=== PATIENT | female | born 1990 | race Caucasian/White ===

== ENCOUNTER → 2018-10-31 08:15 | Outpatient (CLI) | payer OTHER, SELFPAY ==
--- NOTE | 2018-10-31 08:20 | CT_ITS ---
STUDY: CT MAXILLOFACIAL SINUSES REASON FOR EXAM: Female, 28 years old. Headache. RADIATION DOSAGE (If Supplied By Facility): CTDIvol = ( 33.06 ) mGy, DLP = ( 784.26 ) mGycm TECHNIQUE: The patient was scanned in a multi detector CT scanner. High resolution axial imaging was performed without the administration of intravenous contrast material. Sagittal and coronal images were reconstructed. Individualized dose optimization techniques were used for this CT. COMPARISON: None. FINDINGS: FRONTAL SINUSES: Normal aeration, without mucosal inflammatory disease. ETHMOIDAL SINUSES: Normal aeration, without mucosal inflammatory disease. MAXILLARY SINUSES: Normal aeration, without mucosal inflammatory disease. SPHENOIDAL SINUSES: Normal aeration, without mucosal inflammatory disease. There is patency of the bilateral maxillary infundibuli with normal uncinate processes, ethmoid bullae, and hiatus semilunaris. Normal bilateral middle turbinates. Normal bilateral inferior turbinates. Normal midline nasal septum. There is patency of the bilateral nasal airways. The visualized osseous structures are normal. The visualized bilateral orbital contents are normal. CT/Sinus/Facial Bone IMPRESSION: Normal CT examination of the maxillofacial sinuses. Electronically Signed: Elbert Weinstein, at 9:47 EDT , Service support ,
== END ==
PROVIDERS: Family Provider Family Medicine; PCP Family Medicine; Referring Provider Family Medicine; Visit Provider Family Medicine
DX: G44.52 New daily persistent headache (NDPH) (principal)
CPT/HCPCS: 70486

== ENCOUNTER → 2021-01-21 06:29 | Outpatient (CLI) | payer OTHER, SELFPAY ==
--- NOTE | 2021-01-21 06:39 | MRI_ITS ---
STUDY: MRI RIGHT REARFOOT WITHOUT CONTRAST REASON FOR EXAM: Female, 30 years old. RT FOOT PLANTAR FASCIITIS TECHNIQUE: Standardized fat and water weighted pulse sequences were obtained in all 3 orthogonal planes. COMPARISON: None. FINDINGS: Calcaneal stress reaction without fracture line (sagittal image 12 series 4). Tiny plantar spur with minimal plantar fascial thickening. Normal Achilles tendon. Tibiotalar cartilage preserved. Normal subtalar cartilage. Os trigonum. Normal talonavicular joint. Normal calcaneocuboid joint. Normal navicular cuneiform joints. Normal tarsometatarsal joints. Mild soft tissue swelling with small tibiotalar and talonavicular joint effusion. Abductor digit minimi muscle atrophy (coronal image 22). Normal posterior tibialis tendon. Normal flexor digitorum longus tendon. Normal flexor hallucis longus tendon. Moderate peroneus tendinosis with split tear (axial images 7 through 15 series 6). Normal tibialis anterior tendon. Normal extensor hallucis longus tendon. Normal extensor digitorum longus tendons. Normal distal tibiofibular syndesmotic ligamentous complex. Normal lateral ligamentous complex. Normal subtalar ligaments and sinus tarsi. Normal deltoid ligamentous complexes. Normal plantar calcaneonavicular (spring) ligament. 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
== END ==
PROVIDERS: PCP Family Medicine; Referring Provider Podiatrist; Visit Provider Podiatrist
DX: M72.2 Plantar fascial fibromatosis (principal)
CPT/HCPCS: 73718

== ENCOUNTER 2021-09-13 15:41 | Outpatient (CLI) | payer OTHER, SELFPAY ==
[2021-09-13 17:49] LABS: Absolute Lymphocyte Count 2.47 X10^3/uL (0.83-4.51); Absolute Neutrophil Count 6.6 X10^3/uL (2.0-7.7); Basophil# 0.03 X10^3/uL; Basophil% 0.3 % (0-1); Eosinophil# 0.17 X10^3/uL; Eosinophils% 1.7 % (0-5); Hematocrit 42.7 % (37-47); Hemoglobin 13.8 g/dL (12.0-15.0); Lymphocyte # 2.47 X10^3/ul (0.83-4.51); Lymphocyte % 25.1 % (19-41); Mean Corp Hgb Conc 32.3 g/dL (32-36); Mean Corpuscular Hgb 30.3 pg (27.0-32.0); Mean Corpuscular Volume 93.8 fL (81-99); Mean Platelet Vol. 9.3 fl (6.2-12.0); Monocyte# 0.53 X10^3/uL; Monocyte% 5.4 % (0-10); NRBC Flagged by Analyzer 0 % (0-5); Neutrophil % 67.1 % (47-70); Platelet Count 271 K/mm3 (150-450); RBC Distribution Width CV 13.2 % (11.6-14.6); RBC Distribution Width SD 45.6 fl (35.1-43.9); Red Blood Count 4.55 M/mm3 (4.2-5.4); White Blood Count 9.8 K/mm3 (4.4-11.0)
[2021-09-13 18:05] LABS: ALB/GLOB Ratio 0.8 RATIO (0.9-2.4); AST(SGOT) 12 U/L (15-37); Alanine Aminotransfer ALT/SGPT 24 U/L (13-56); Alkaline Phosphatase 78 U/L (45-117); Anion Gap 5 (5-15); BUN 16 mg/dL (7-18); BUN/Creat Ratio 21.1 RATIO (10-20); Calcium,Total 8.4 mg/dL (8.5-10.1); Chloride 108 mmol/L (98-107); Creatinine, Serum 0.76 mg/dL (0.55-1.02); EST Glomerular Filtration Rate 95 mL/min (>60); Est Glom Filt Rate - Afr Amer 115 mL/min (>60); Globulin 3.8 g/dL (2.2-4.2); Glucose 130 mg/dL (74-106); Potassium 3.7 mmol/L (3.5-5.1); Protein, Total 6.8 g/dL (6.4-8.2); Sodium Level 140 mmol/L (136-145)
== END 2021-09-13 23:59 | disposition home or self-care (01) ==
PROVIDERS: PCP Family Medicine; Referring Provider Family Medicine; Visit Provider Family Medicine
DX: Z01.818 Encounter for other preprocedural examination (principal)
CPT/HCPCS: 36415; 80053; 85025

== ENCOUNTER 2021-10-07 05:53 | Day surgery (SDC) | payer OTHER, SELFPAY ==
[2021-10-07 06:23] VITALS: BP 141/96; PULSE 99; RESP 18; TEMP 36.6; O2SAT 99; BMI 49.7
[2021-10-07 06:26] LABS: Internal QC Validated? YES +Cl - CLEAR BKGD; Pregnancy, Urine Negative Negative
[2021-10-07] MEDS: Lactated Ringers 1,000 ML 15 ML IV ×2 (06:38→09:37)
--- NOTE | 2021-10-07 07:28 | DCINST_ITS ---
Discharge Instructions Diet Discharge Diet: Light diet - advance as tolerated Activity Weight Bearing Status: No weight bearing (No weightbearing right foot.) Keep extremity elevated above heart level: Right Leg (Keep right foot elevated for at least 50 minutes of every hour.) Dressing / Incision Call your doctor if your incision/area has: Continuous Slow Oozing, Sudden Increased Bleeding and Foul Smelling Discharge Call your doctor if you observe: Fever of 101 or Higher, Shortness of breath, Chest pain, Increased palpitations (irregular heartbeat), Calf discomfort and Uncontrolled pain Change Dressing in: leave in place till F/U Remove Dressing in: do not remove dressing Cleanse incision/area with: Keep Dressing Clean & Dry Follow Up Care Please Follow Up With: Dante Hassan DPM Test Results: Test results from this visit will be discussed in further detail at your follow-up appointment, if applicable. Discharge Plan Admission Attending Provider: Dante Hassan Primary Care Provider: Magdalena Garcia Discharge Orders/Prescriptions Prescriptions: No Action norgestimate-ethinyl estradiol [Tri Femynor] 0.18/0.215/0.25 mg-35 mcg (28) Tablet 1 tab PO DAILY RF: 0 fluticasone propionate [Flonase Allergy Relief] 50 mcg/actuation [place],Suspension 1 spray INTRANASAL PRN PRN (Reason: ALLERGIES) RF: 0 iron 40 mg Capsule 65 mg PO DAILY RF: 0 olopatadine [Pataday] 0.2 % Drops 1 drp EACH EYE DAILY RF: 0 Zyrtec 10 mg Capsule 10 mg PO DAILY RF: 0
--- NOTE | 2021-10-07 07:30 | TESH_PTH ---
PATIENT: DIANE PETERSON [place] [facility] [id number] AGE/SX: 31/F ROOM: RE10/07/[address]: Dr. Dante Hassan DPM : 1990 BED: DIS: 10/07/2021 SPEC #: [id number] RECD: 10/07/21 10:28 STATUS: LAURI REAnita #: [id number] FAMILIA: 10/07/21 07:[address]: Dante Hassan DEPT: SURGICAL PATHOLOGY RECD BY: Vanesa Liu ENTERED: 10/07/21 11:57 SP TYPE: TENDON OTHR DR: Dr. Magdalena Garcia MD Tissues: Tendon, NOS Procedures: Surgery Specimen Level III HEADER OPERATION: Debrided and repaired peroneal tendons of foot PRE-OP DIAGNOSIS: Peroneal tendon tear, right foot TISSUE SUBMITTED: Debrided peroneus brevis tendon MICROSCOPIC DIAGNOSIS Preoneus brevis tendon. Excision: Tendinous and skeletal muscle tissue with reparative change. AM/am 10/10/21 MICROSCOPIC DESCRIPTION Slides are reviewed. GROSS DESCRIPTION Received is one container labeled with the patient name and designated derided peroneus brevis tendon. The specimen consists of multiple irregular fragments of [id number] to pink-red soft tissue that in aggregate measure 5.0 x 3.5 x 1.5 cm. No mass lesion is identified. Special Education Professional sections are submitted in two cassettes. KOFFI 10/09/21 TC:5 CPT:38679
--- NOTE | 2021-10-07 09:11 | PCM.OPRPT ---
Report of Operation Date of Procedure: 10/07/21 Pre-Operative Diagnosis: Right peroneus brevis tendon tear Post-Operative Diagnosis: Same Surgery/Procedure Performed:: Debride and repair of peroneus brevis tendon, right Surgeon: Dante Hassan Type of Anesthesia: General and Local Specimen's removed: Debrided peroneus brevis tendon, right Estimated Blood Loss (mL): 5mL Description of Procedure: Indications: This is a 31 year old female with history of chronic right ankle pain. MRI showed longitudinal splint peroneus brevis tendon tear. She continues to have ankle pain despite rest, icing, elevation, immobilization, bracing, and EPAT/shockwave. We discussed the options further nonsurgical vs surgical - she elected to proceed with debridement and repair of the peroneus brevis tendon. We discussed this procedure in great detail. Reviewed the possible benefits vs risks, goals, expectations and estimated healing time. Advised she will need to be nonweightbearing on that foot for at least 1 month, and then protected weightbearing for another month after that at least. Alterative options of pain management, more time, further bracing were reviewed and discussed with her. However she elected to proceed with the surgical intervention. The consent forms were reviewed with her, and she freely signed them. No guarantees were given nor implied. No warranties were given. Patient was medically cleared for surgery. Also of note she had history of plantar fasciitis bilateral which is doing well at this time. Operative procedure: The patient was brought back to the operating room and was placed on the operating room table in the supine position. Patient was carefully secured to the operating room table with a safety belt around the waist. A time out was performed and she was properly identified and the surgical plan was confirmed. She received general anesthesia per the anesthesia team. She received 3 grams of intervenous Cefazolin for antibiotic prophylaxis. A well padded pneumatic tourniquet was applied around the right thigh. The right lower extremity was scrubbed, prepped, and draped in the usual aseptic fashion. Attention was directed to the right foot/ankle. There was noted to be some edema localized to the peroneal tendons of the lateral hindfoot and ankle. The right foot, ankle and leg were elevated and the left thigh pneumatic tourniquet was inflated to 350mmHg. Peroneal tendon debridement and repair, right: Attention was directed to the lateral ankle and hindfoot at the level of the peroneal tendons. A skin incision was made over the peroneal tendons of the lateral ankle and hindfoot. Careful dissection was completed down to the superior and inferior peroneal tendon retinaculum which were incised. The peroneal tendon sheath was incised. There was noted to be a very low lying muscle belly of the peroneus brevis tendon along with significant tendinosis and mucoid degenerative along with the longitudinal splint bear. The low lying muscle belly as well as the tendinosis and mucoid degeneration were excised and sent as specimen to pathology. rative noted to the tendon, this was debrided using a 15 blade and was sent to pathology as specimen. This was debrided down to healthy viable tendon - the nonviable unhealthy tendon comprised approximately 40% of the tendon at this level. The tendon was repaired and tubularized using 2-0 Prolene in a locking running suturing technique. The peroneus longus tendon was noted to be healthy and viable with no tears or degeneration noted. The surgical site was flushed out with copious amounts of normal saline solution. The peroneal tendons were placed back into proper position. The superior and inferior peroneal retinaculum were reapproximated using 2-0 Prolene. The subcutaneous tissue was reapproximated using 3-0 Vicryl. The skin was reapproximated using 3-0 Monocryl. Of note the right thigh pneumatic tourniquet was deflated at 68 minutes, there was immediate return of warmth and perfusion to the foot and ankle. CFT < 2 seconds to all toes with normal temperature presents and tissue viable. Hemostasis was achieved. All vital structures including all vital neurovascular structures to the area were properly identified and protected/retracted as necessary for this procedure. A dressing was applied which consisted of Betadine soaked adaptic, 4x4 gauze, Kerlix, hi bandage and a well padded below knee posterior splint secured with hi bandages, and with heel offloaded. The patient tolerated the above operative procedure well and the anesthesia well with no complications. The patient was transported from the operative room to the recovery room with vital sign stable and in good condition. Post operative orders were placed. Post operative instructions were reviewed with patient and her - both verbal and written. Keep foot elevated for at least 50 minutes of every hour, keep dressings clean, dry, and intact. No weightbearing right foot. [place] 5mg/325mg 1-2 tabs PO q 6 hours PRN pain. Aspirin 325mg PO once a day was prescribed for DVT prophylaxis. Recommended she stop her control to help prevent DVT. Patient to follow up in 1 week, or sooner if needed. Grafts/Implants Used: 2-0 prolene Complications None
[2021-10-07 09:19] VITALS: BP 130/59; BP 141/96; PULSE 106; RESP 15; TEMP 36.4; O2SAT 97
[2021-10-07 09:30] VITALS: BP 129/75; BP 141/96; PULSE 92; RESP 16; O2SAT 97
[2021-10-07 09:45] VITALS: BP 113/70; BP 141/96; PULSE 82; RESP 16; TEMP 36.6; O2SAT 100
[2021-10-07 10:00] VITALS: BP 115/80; BP 141/96; PULSE 80; RESP 16; O2SAT 98
== END 2021-10-07 10:57 | disposition home or self-care (01) ==
LOC: SDC 05:57 → AC 05:59
PROVIDERS: Anesthesiology; PCP Family Medicine; Referring Provider Podiatrist; Visit Provider Podiatrist
PROC: (CPT 27650; principal; 2021-10-07 07:15)
DX: S96.811A Strain of other specified muscles and tendons at ankle and foot level, right foot, initial encounter (principal); X58.XXXA Exposure to other specified factors, initial encounter; Y93.9 Activity, unspecified; Y99.9 Unspecified external cause status; Y92.9 Unspecified place or not applicable; E61.1 Iron deficiency; Z79.899 Other long term (current) drug therapy
CPT/HCPCS: 27675; 01470; 81025; 88304; J7120; J2405

== ENCOUNTER → 2021-10-12 | Outpatient (CLI) | payer OTHER, SELFPAY ==
[2021-10-12 12:36] LABS: Absolute Lymphocyte Count 1.61 X10^3/uL (0.83-4.51); Absolute Neutrophil Count 5.7 X10^3/uL (2.0-7.7); Basophil# 0.03 X10^3/uL; Basophil% 0.4 % (0-1); Eosinophil# 0.09 X10^3/uL; Eosinophils% 1.1 % (0-5); Hematocrit 42.5 % (37-47); Hemoglobin 13.8 g/dL (12.0-15.0); Lymphocyte # 1.61 X10^3/ul (0.83-4.51); Lymphocyte % 20.5 % (19-41); Mean Corp Hgb Conc 32.5 g/dL (32-36); Mean Corpuscular Hgb 29.7 pg (27.0-32.0); Mean Corpuscular Volume 91.6 fL (81-99); Mean Platelet Vol. 9.4 fl (6.2-12.0); Monocyte% 5.1 % (0-10); NRBC Flagged by Analyzer 0 % (0-5); Neutrophil % 72.6 % (47-70); Platelet Count 265 K/mm3 (150-450); RBC Distribution Width CV 13.2 % (11.6-14.6); RBC Distribution Width SD 44.1 fl (35.1-43.9); Red Blood Count 4.64 M/mm3 (4.2-5.4); White Blood Count 7.9 K/mm3 (4.4-11.0)
[2021-10-12 13:07] LABS: Hemoglobin A1c 5.4 % (3.8-5.6)
[2021-10-12 13:11] LABS: ALB/GLOB Ratio 0.7 RATIO (0.9-2.4); AST(SGOT) 19 U/L (15-37); Alanine Aminotransfer ALT/SGPT 28 U/L (13-56); Alkaline Phosphatase 79 U/L (45-117); Anion Gap 8 (5-15); BUN 15 mg/dL (7-18); BUN/Creat Ratio 17.7 RATIO (10-20); Chloride 104 mmol/L (98-107); Cholesterol 198 mg/dL (200); Creatinine, Serum 0.85 mg/dL (0.55-1.02); EST Glomerular Filtration Rate 84 mL/min (>60); Est Glom Filt Rate - Afr Amer 101 mL/min (>60); Ferritin 65 ng/mL (8-252); Globulin 4.2 g/dL (2.2-4.2); Glucose 126 mg/dL (74-106); High Density Lipoprotein 68 mg/dL; Iron 68 ug/dL (50-170); Iron Binding Capacity,Total 408 ug/dL (250-450); Potassium 3.9 mmol/L (3.5-5.1); Protein, Total 7.2 g/dL (6.4-8.2); Sodium Level 136 mmol/L (136-145); T4 Free Direct 1.03 ng/dL (0.76-1.46); Thyroid Stim Hormone (TSH) 2.08 uIU/mL (0.358-3.74); Triglycerides 135 mg/dL; Very Low Density Lipoprotein 27 mg/dL (5-40)
== END | disposition home or self-care (01) ==
PROVIDERS: PCP Family Medicine; Visit Provider Family Medicine
DX: D50.9 Iron deficiency anemia, unspecified (principal); E66.01 Morbid (severe) obesity due to excess calories; R73.09 Other abnormal glucose; R68.89 Other general symptoms and signs; E01.0 Iodine-deficiency related diffuse (endemic) goiter
CPT/HCPCS: 36415; 80053; 80061; 82728; 83036; 83540; 83550; 84439; 84443; 85025

== ENCOUNTER → 2021-10-21 | Outpatient (CLI) | payer OTHER, SELFPAY ==
--- NOTE | 2021-10-21 14:28 | US_ITS ---
STUDY: THYROID ULTRASOUND REASON FOR EXAM: Female, 31 years old. THYROMEGALY TECHNIQUE: Ultrasound evaluation of the thyroid was performed with real-time and static bains-scale imaging. COMPARISON: None. FINDINGS: RIGHT LOBE: The right lobe of the thyroid gland measures 4.6 x 1.6 x 1.1 cm. There is a homogeneous echotexture. There are no demonstrated solid, cystic or complex lesions. LEFT LOBE: The left lobe of the thyroid gland measures 3.9 x 1.5 x 0.9 cm. There is a homogeneous echotexture. There are no demonstrated solid, cystic or complex lesions. ISTHMUS: The isthmus measures 3 mm thick. . The regional lymph nodes are normal. US/Thyroid IMPRESSION: Normal ultrasound examination of the thyroid. Electronically Signed: Marshall Rosas MD at 12:20 EDT ,
== END | disposition home or self-care (01) ==
LOC: US 14:27
PROVIDERS: PCP Family Medicine; Referring Provider Family Medicine; Visit Provider Family Medicine
DX: E01.0 Iodine-deficiency related diffuse (endemic) goiter (principal)
CPT/HCPCS: 76536

== ENCOUNTER 2021-12-05 08:42 | Outpatient (RCR) | payer OTHER, SELFPAY | END 2021-12-08 23:59 | LOC: NS 08:42 | PROVIDERS: PCP Family Medicine; Referring Provider Family Medicine; Visit Provider Family Medicine | DX: Z71.3 Dietary counseling and surveillance (principal); E66.01 Morbid (severe) obesity due to excess calories; Z68.43 Body mass index [BMI] 50.0-59.9, adult | CPT/HCPCS: 97802 ==

== ENCOUNTER 2022-01-04 09:04 | Outpatient (RCR) | payer OTHER, SELFPAY | END 2022-01-08 23:59 | LOC: NS 09:04 | PROVIDERS: PCP Family Medicine; Referring Provider Family Medicine; Visit Provider Family Medicine | DX: Z71.3 Dietary counseling and surveillance (principal); E66.01 Morbid (severe) obesity due to excess calories; Z68.42 Body mass index [BMI] 45.0-49.9, adult | CPT/HCPCS: 97803 ==

== ENCOUNTER 2022-01-31 18:45 | Emergency (ER) | payer OTHER, SELFPAY ==
[2022-01-31 18:46] VITALS: BP 141/102; PULSE 97; RESP 16; TEMP 36.3; O2SAT 100; BMI 50.1
--- NOTE | 2022-01-31 19:16 | US_ITS ---
We are attempting to reach an attending provider to discuss findings. An addendum with communication details will be sent when the communication is complete. STUDY: VENOUS DOPPLER ULTRASOUND - RIGHT LOWER EXTREMITY REASON FOR EXAM: Female, 31 years old. RT LEG PAIN, REDNESS SWELLING TECHNIQUE: Ultrasound evaluation of the deep vein system to include hunt-scale imaging and compression was performed. Hunt-scale imaging and Doppler sonographic evaluation, including duplex spectral analysis and qualitative color flow sonography, was performed. COMPARISON: None. FINDINGS: Common Femoral Vein: Normal compression, spontaneity and augmentation. Normal color Doppler. Common Femoral Vein/Greater Saphenous Junction: Normal compression, spontaneity and augmentation. Normal color Doppler. Deep Femoral Vein: Normal compression, spontaneity and augmentation. Normal color Doppler. Superficial femoral vein. Incomplete compressibility and internal echoes consistent with intraluminal clot Popliteal Vein: Incomplete compressibility with internal echoes consistent with intraluminal clot Posterior Tibial Vein: Normal compression, spontaneity and augmentation. Normal color Doppler. Peroneal Vein: Normal compression, spontaneity and augmentation. Normal color Doppler. US/Venous Duplex Imag/Limited/Uni IMPRESSION: Deep venous thrombosis of the right superficial femoral vein and popliteal vein Electronically Signed: Dante Winslow MD at 20:25 EDT ,
--- NOTE | 2022-01-31 21:13 | EX.ED.DYSGE1 ---
HPI History of Present Illness Chief Complaint: Lower Extremity Injury Informant: patient Narrative Narrative: Patient presents with a new swelling of her right proximal calf. She states it is itchy and just a little bit sore. No chest pain or trouble breathing. She did have surgery back in September for tendon repair on that leg. But she has been healing well and is back to work. She wears a supportive ankle wrap but it allows full mobility. She has never had a DVT or PE. She is not a smoker. However she is on control. No recent travel. [facility] Medical History Alcohol use Back pain Easy bruising History of steroid therapy Injury of head and neck Leg cramps Low iron Migraine headache Non-smoker Shortness of breath on exertion Uses brace Wears contact lenses Wears glasses Home Medications cetirizine 10 mg capsule (Zyrtec) 10 mg PO DAILY 09/30/21 [History Last Taken 10/06/21] fluticasone propionate 50 mcg/actuation nasal spray,suspension (Flonase Allergy Relief) 1 spray intranasal PRN PRN ALLERGIES 09/30/21 [History Last Taken 10/06/21] iron 40 mg capsule 65 mg PO DAILY 09/30/21 [History Last Taken 10/06/21] norgestimate-ethinyl estradiol 0.18 mg/0.215mg/0.25mg-35 mcg(28)tablet (Tri Femynor) 1 tab PO DAILY 09/30/21 [History Last Taken 10/06/21] olopatadine 0.2 % eye drops 1 drp EACH EYE DAILY 09/30/21 [History Last Taken 10/06/21] apixaban 5 mg tablet (Eliquis) 5 mg PO BID #74 tabs 01/31/22 [Rx Last Taken Unknown] Allergy/AdvReac Type Severity Reaction Status Date / Time lactose AdvReac Upset Verified 09/30/21 10:11 Stomach Surgical History No history of previous surgery Social History Smoking Status: Never smoker ROS ROS ED Constitutional Constitutional ED: Denies chills, fever(s) or subjective Eyes Eyes: Denies change in vision Cardiovascular Cardiovascular: Denies chest pain, orthopnea, palpitations, paroxysmal nocturnal dyspnea or racing heartbeat Respiratory/Chest Respiratory/Chest: Denies cough, dyspnea, dyspnea on exertion, orthopnea or paroxysmal nocturnal dyspnea Gastrointestinal Gastrointestinal: Denies nausea or vomiting Genitourinary Genitourinary ED: Denies hematuria Musculoskeletal Musculoskeletal: Reports other Details: See history of present illness ; Denies back pain Integumentary Reports other Details: Mild erythema of the proximal medial calf see history of present illness peer Neurologic Neurologic: Denies paresthesias or weakness Hematologic/Lymphatic Hematologic/Lymphatic: Denies anemia, easy bleeding or easy bruising Allergic/Immunologic Allergic/Immunologic ED: Denies urticaria EXAM Physical Exam Const Vital Signs: 01/31/22 18:46 Temperature 97.4 F L Temperature Source Temporal Pulse Rate 97 Respiratory Rate 16 Blood Pressure 141/102 H Blood Pressure Mean 115 Pulse Ox 100 Oxygen Delivery Method Room Air Positive well nourished, well developed and obese General Appearance ED: well developed and NAD Nutritional Appearance: obese HEENT Reports moist mucous membranes Eyes General Eye ED: Negative for scleral icterus Neck no JVD Chest Wall inspection of chest normal Resp normal respiratory effort and clear to auscultation bilaterally Effort and Inspection: Negative for pain with movement Auscultation: Negative for rales, rhonchi or wheezes Cardio regular rate, regular rhythm and no murmurs GI normal to inspection, nondistended, normoactive bowel sounds Palpation: soft Extremity Extremity Narrative: Patient does have some erythema to the proximal left calf mostly posterior medially. It is mildly tender. I am not able to feel a cord. I do not feel cord more proximally either. There does appear to be some slight asymmetry of legs. Neuro no sensory deficits noted Sensorium / Orientation: alert; Negative for lethargic or stuporous Psych mental status grossly normal Skin Skin Narrative: See above. MDM MDM MDM Narrative Medical decision making narrative: Ultrasound is positive for DVT in right superficial femoral and popliteal vein. This does not go under inguinal ligament. We will treat this with oral Eliquis. I discussed risk of this drug. I discussed that she may need to modify her medications including control. She can discuss this with her physician. We discussed increased risk of bleeding and bruising. We discussed return reasons including if she has any significant injury fall or injury to her head. Radiography Diagnostic Testing: Clinical Impression(s) from Imaging Studies Venous Duplex 01/31/22 19:16 IMPRESSION: Deep venous thrombosis of the right superficial femoral vein and popliteal vein Electronically Signed: Dante Winslow MD at 20:25 EDT Reading Location ID and State: [facility] / [place] , Service support , ADDENDUM: 01/31/222046 IMPRESSION: Deep venous thrombosis of the right superficial femoral vein and popliteal vein N.B. : The above Results were Read Back by Dante Winslow MD to Dr. Jared Haile MD, and understanding confirmed on 01/31/2022 20:40:38 (ET). Electronically Signed: Dante Winslow MD at 20:25 EDT , Discharge Plan Triage Chief Complaint: Lower Extremity Injury ED Provider: Jared Haile Dx/Rx/DC Orders Clinical Impression: Acute deep vein thrombosis (DVT) of right lower extremity Instructions: ED Deep Vein Thrombosis (DVT) Prescriptions: New Eliquis 5 mg tablet 5 mg PO BID Qty: 74 0RF Rx Instructions: 10 mg twice a day for the first week. Then 5 mg twice a day. No Action norgestimate-ethinyl estradiol [Tri Femynor] 0.18/0.215/0.25 mg-35 mcg (28) Tablet 1 tab PO DAILY fluticasone propionate [Flonase Allergy Relief] 50 mcg/actuation [place],Suspension 1 spray INTRANASAL PRN PRN (Reason: ALLERGIES) iron 40 mg Capsule 65 mg PO DAILY olopatadine [Pataday] 0.2 % Drops 1 drp EACH EYE DAILY Zyrtec 10 mg Capsule 10 mg PO DAILY Primary Care Provider: Ubaldo Bills Referrals: Ubaldo Bills MD [Primary Care Provider] - As soon as possible Disposition Disposition: Home, Self Care
[2022-01-31 21:37] VITALS: PULSE 84; RESP 18
[2022-01-31] MEDS: APIXABAN 5 MG TABLET 10 MG PO (21:39)
== END 2022-01-31 21:45 | disposition home or self-care (01) ==
PROVIDERS: Emergency Provider Emergency Medicine; PCP Family Medicine; Visit Provider Emergency Medicine
DX: I82.411 Acute embolism and thrombosis of right femoral vein (principal); I82.431 Acute embolism and thrombosis of right popliteal vein
CPT/HCPCS: 93971; 99283

== ENCOUNTER → 2022-02-01 | Outpatient (CLI) | payer OTHER, SELFPAY | END | disposition home or self-care (01) | PROVIDERS: PCP Family Medicine; Referring Provider Family Medicine; Visit Provider Family Medicine | DX: I82.409 Acute embolism and thrombosis of unspecified deep veins of unspecified lower extremity (principal) | CPT/HCPCS: 36415 ==

== ENCOUNTER 2022-02-07 09:34 | Outpatient (RCR) | payer OTHER, SELFPAY | END 2022-02-08 23:59 | LOC: NS 09:34 | PROVIDERS: PCP Family Medicine; Referring Provider Family Medicine; Visit Provider Family Medicine | DX: Z71.3 Dietary counseling and surveillance (principal); E66.01 Morbid (severe) obesity due to excess calories; Z68.42 Body mass index [BMI] 45.0-49.9, adult | CPT/HCPCS: 97803 ==

== ENCOUNTER 2022-02-24 08:00 | Outpatient (RCR) | payer OTHER, SELFPAY ==
--- NOTE | 2021-12-05 12:24 | HP.PTEVAL ---
Patient's Visit Information DIANE PETERSON is a 31 year old F referred to Physical Therapy by Dr. Dante Hassan DPM with a diagnosis of S/P R peroneal tendon repair 10/07/21. Date of Evaluation: 12/05/21 Physical Therapist: Asher Del Valle, PT, ATC - Visit Plan Frequency: 2-3x /Week Duration: 4-6 Weeks Plan: R ankle stretching and strengthening, PROM and mobs, balance and proprio, bike, and HEP - Subjective DOS: 10/07/21. Pt reports she has had R ankle pain intermittently for a few years. Pt reports she is feeling much better now since having the surgery as her pain prior to the surgery was sharp and searing. Pt reports she has been walking now with her AFO for a few days now. Pt reports she started walking for one hour at a time, and increasing it by one additional hour per day. Pt denies tingling or numbness at this time in her r LE. Pt reports no sleep difficulty at this time secondary to pain. Pt denies any prior Hx of R LE surgery prior to this surgery. 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 Pt has 2 steps to go into her apartment which she notes is very challenging at this time. R ankle pain is rated at 1/10 pain at rest, 4/10 pain with weightbearing activity. - Pain R ankle Pain Intensity (Out of 10): 1 Pain Intensity Range: 4 - Objective Neuro: B LE sensation is WNL to light touch. Girth: L ankle 54 cm, R ankle 51 cm. ROM: L ankle DF= 5, PF= 65 degrees; R ankle DF= 0, PF= 50. MMT: L ankle 5/5 throughout. R ankle 3/5 throughout - Balance/Special Test Scores Lower Extremity Functional Score: 32 - Goals Goal 1:: Decrease R ankle pain x 50% to aid with ambulation Goal Time Frame: 4-6 Weeks Goal 2:: Increase R ankle strength x 1 grade to aid with stair negotiation Goal Time Frame: 4-6 Weeks Goal 3:: Increase R ankle DF ROM x 10 degrees to aid with restoring a more normalized gait pattern Goal Time Frame: 4-6 Weeks Goal 4:: I with HEP Goal Time Frame: 4-6 Weeks - Rehabilitation Potential Physical Therapy Diagnosis: Pt has R ankle pain, weakness, and limited ROM secondary to being s/p R peroneal tendon repair Rehabilitation Potential: Good - Anticipated Interventions Patient/Client Instruction: Educate patient on: Condition, Plan of Care For the Purpose of:: To improve self management Therapeutic Exercise to Include: Strength training, Endurance training, Balance training, Flexibilty training, Gait and locomotor training, Passive ROM, Active ROM For the Purpose of:: To decrease pain, To increase ROM, To improve muscle performance and motor function Cryotherapy (ice pack, ice massage): Yes For the Purpose of:: To decrease pain Thank you for the opportunity to evaluate your patient. For Medicare and Medicare HMO plans, please review the plan of care and approve it. It will need to be FAXED BACK to us at [phone] for Medicare purposes. For Medicare only, by signing this I certify the plan of care. Please let me know if there are questions or concerns regarding this plan of care. Physician Signature: Date:
--- NOTE | 2022-01-13 11:01 | HP.PTREVAL_ITS ---
Dr. Dante Hassan, DPM, It has been my pleasure to treat DIANE PETERSON over the last 16 visits for S/P R peroneal tendon repair 10/07/21. Please see the progress note below for an update on the physical therapy plan of care! Subjective: I am getting better. I am getting stronger, but balance and flexibility are still lacking Objective/Function: R ankle pain 0/10. MMT: R ankle is grossly 5/5 throughout with the exception of ever= 4-/5. R ankle DF ROM: 6 degrees. Pt is showing excellent progress towards Rx goals at this time Plan Plan: R ankle stretching and strengthening, PROM and mobs, balance and proprio, bike, and HEP. Balance/Gait/Functional tests - Balance/Special Test Scores Lower Extremity Functional Score: 52 Goals Goal 1:: Decrease R ankle pain x 50% to aid with ambulation Goal Time Frame: 4-6 Weeks Goal Progress: Goal Met Goal 2:: Increase R ankle strength x 1 grade to aid with stair negotiation Goal Time Frame: 4-6 Weeks Goal Progress: Progressing Goal 3:: Increase R ankle DF ROM x 10 degrees to aid with restoring a more normalized gait pattern Goal Time Frame: 4-6 Weeks Goal Progress: Progressing Goal 4:: I with HEP Goal Time Frame: 4-6 Weeks Goal Progress: Progressing Anticipated Interventions Patient/Client Instruction: Educate patient on: Condition, Plan of Care For the Purpose of:: To improve self management Therapeutic Exercise to Include: Strength training, Endurance training, Balance training, Flexibilty training, Gait and locomotor training, Passive ROM, Active ROM For the Purpose of:: To decrease pain, To increase ROM, To improve muscle perfor sheyla and motor function Cryotherapy (ice pack, ice massage): Yes For the Purpose of:: To decrease pain Please do not hesitate to contact me at [phone] by phone or if you have questions or concerns regarding this new plan of care! Sincerely, Asher Del Valle, PT, ATC
--- NOTE | 2022-02-24 08:29 | HP.PTDCSUM_ITS ---
It has been my pleasure to treat DIANE PETERSON referred by Dr. Dante Hassan, JUANM, with the diagnosis of S/P R peroneal tendon repair 10/07/21 for a total of 19 visit(s). Discharge Date: Please see the following information for a summary of their discharge status. Subjective: I have no pain in my R foot/ankle. I do have a blood clot that the doctors are monitoring. R ankle Pain Intensity (Out of 10): 0 % Improvement: 90 Objective/Function: R ankle pain 0/10. R ankle strength is 5/5 throughout. R ankle DF ROM 7 degrees. Pt is I with HEP Goal 1:: Decrease R ankle pain x 50% to aid with ambulation Goal Progress: Goal Met Goal 2:: Increase R ankle strength x 1 grade to aid with stair negotiation Goal Progress: Goal Met Goal 3:: Increase R ankle DF ROM x 10 degrees to aid with restoring a more normalized gait pattern Goal Progress: Progressing Goal 4:: I with HEP Goal Progress: Goal Met Plan: Discharge to [facility] If there are questions or concerns regarding this patient's physical therapy, please feel free to call me at [phone]. Thank you for the referral of this patient. Sincerely, Asher Del Valle, PT, ATC Balance/Gait/Functional tests - Balance/Special Test Scores Lower Extremity Functional Score: 51
== END 2022-02-24 19:00 | disposition home or self-care (01) ==
LOC: PT 08:00
PROVIDERS: PCP Family Medicine; Referring Provider Podiatrist; Visit Provider Podiatrist
DX: Z47.89 Encounter for other orthopedic aftercare (principal)
CPT/HCPCS: 97110; 97161; 97164

== ENCOUNTER 2022-06-21 09:38 | Outpatient (RCR) | payer OTHER, SELFPAY | END 2022-07-11 23:59 | LOC: NS 09:38 | PROVIDERS: PCP Family Medicine; Referring Provider Family Medicine; Visit Provider Family Medicine | DX: Z71.3 Dietary counseling and surveillance (principal); E66.01 Morbid (severe) obesity due to excess calories; Z68.42 Body mass index [BMI] 45.0-49.9, adult | CPT/HCPCS: 97803 ==

== ENCOUNTER → 2022-07-12 | Outpatient (CLI) | payer OTHER, SELFPAY ==
[2022-07-12 10:22] LABS: Absolute Lymphocyte Count 1.99 X10^3/uL (0.83-4.51); Absolute Neutrophil Count 4.3 X10^3/uL (2.0-7.7); Basophil# 0.04 X10^3/uL; Basophil% 0.6 % (0-1); Eosinophil# 0.18 X10^3/uL; Eosinophils% 2.6 % (0-5); Hematocrit 42.2 % (37-47); Hemoglobin 13.8 g/dL (12.0-15.0); Lymphocyte # 1.99 X10^3/ul (0.83-4.51); Lymphocyte % 28.2 % (19-41); Mean Corp Hgb Conc 32.7 g/dL (32-36); Mean Corpuscular Hgb 30.6 pg (27.0-32.0); Mean Corpuscular Volume 93.6 fL (81-99); Mean Platelet Vol. 9.3 fl (6.2-12.0); Monocyte# 0.57 X10^3/uL; Monocyte% 8.1 % (0-10); NRBC Flagged by Analyzer 0 % (0-5); Neutrophil # 4.25 X10^3/uL (2.7-7.7); Neutrophil % 60.2 % (47-70); Platelet Count 252 K/mm3 (150-450); RBC Distribution Width CV 13.2 % (11.6-14.6); RBC Distribution Width SD 45.3 fl (35.1-43.9); Red Blood Count 4.51 M/mm3 (4.2-5.4); White Blood Count 7.1 K/mm3 (4.4-11.0)
[2022-07-12 10:41] LABS: AST(SGOT) 17 U/L (15-37); Alanine Aminotransfer ALT/SGPT 24 U/L (13-56); Albumin, Serum 3.4 g/dL (3.2-5.0); Alkaline Phosphatase 92 U/L (45-117); Anion Gap 5 (5-15); BUN 10 mg/dL (7-18); BUN/Creat Ratio 13.6 RATIO (10-20); Calcium,Total 8.9 mg/dL (8.5-10.1); Chloride 104 mmol/L (98-107); Cholesterol 158 mg/dL (200); Creatinine, Serum 0.73 mg/dL (0.55-1.02); EST Glomerular Filtration Rate 99 mL/min (>60); Est Glom Filt Rate - Afr Amer 119 mL/min (>60); Globulin 3.5 g/dL (2.2-4.2); Glucose 106 mg/dL (74-106); High Density Lipoprotein 54 mg/dL; Potassium 4.3 mmol/L (3.5-5.1); Protein, Total 6.9 g/dL (6.4-8.2); Sodium Level 138 mmol/L (136-145); Triglycerides 62 mg/dL; Very Low Density Lipoprotein 12 mg/dL (5-40)
[2022-07-13 10:50] LABS: Hemoglobin A1c 5.3 % (3.8-5.6)
== END | disposition home or self-care (01) ==
LOC: MFPLAB 09:01
PROVIDERS: PCP Family Medicine; Referring Provider Family Medicine; Visit Provider Family Medicine
DX: E66.01 Morbid (severe) obesity due to excess calories (principal); R73.09 Other abnormal glucose
CPT/HCPCS: 36415; 80053; 80061; 83036; 85025

== ENCOUNTER → 2022-07-18 | Outpatient (CLI) | payer OTHER, SELFPAY ==
--- NOTE | 2022-07-18 16:45 | MRI_ITS ---
INDICATION: LEFT peroneal tendon tear EXAMINATION: MRI - LEFT MR Ankle W/O Contrast TECHNIQUE: Multiplanar and multisequence MR images of the left ankle. IV Contrast Dosage and Agent: None. COMPARISON: None. FINDINGS: BONE: Talar dome intact. No fracture. Edema at the cuboid-lateral cuneiform articulation. No osteochondral lesion. Plantar calcaneus enthesopathy. JOINT: Articular cartilage intact. No joint effusion. LIGAMENTS: The syndesmotic ligaments, lateral collateral ligaments, and medial collateral ligaments are intact. TENDONS: Findings concerning for peroneus brevis split tear, axial image 117, coronal image 15. Long segment peroneus longus tendon increased fluid signal along the plantar foot on axial images, not seen on other sequences, possibly artifactual or secondary to strain. The medial flexor tendons and extensor tendons are intact. Achilles tendon intact. MUSCLES: Normal bulk and signal. MISCELLANEOUS: Plantar fascia intact. Normal fat in the sinus tarsi. MRI/Lower Ext Joint Only (Routine) IMPRESSION: 1. Findings concerning for peroneus brevis split tear. 2. Nonspecific increased fluid signal within distal plantar peroneus longus tendon on axial images, not seen on other sequences of uncertain significance, possibly artifactual or secondary to strain. 3. Intraosseous edema along the lateral cuneiform and dorsal cuboid articulation of uncertain etiology, possibly degenerative, not immediately adjacent to the peroneus tendon. Electronically Signed: Jeramy Jones MD at 4:29 EST ,
== END | disposition home or self-care (01) ==
LOC: MRI 16:15
PROVIDERS: PCP Family Medicine; Visit Provider Podiatrist
DX: S86.312A Strain of muscle(s) and tendon(s) of peroneal muscle group at lower leg level, left leg, initial encounter (principal); X58.XXXA Exposure to other specified factors, initial encounter
CPT/HCPCS: 73721

== ENCOUNTER 2022-09-26 07:57 | Outpatient (RCR) | payer OTHER, SELFPAY | END 2022-10-08 23:59 | LOC: NS 07:57 | PROVIDERS: PCP Family Medicine; Referring Provider Family Medicine; Visit Provider Family Medicine | DX: Z71.3 Dietary counseling and surveillance (principal); E66.01 Morbid (severe) obesity due to excess calories; Z68.42 Body mass index [BMI] 45.0-49.9, adult | CPT/HCPCS: 97803 ==

== ENCOUNTER 2023-01-11 07:52 | Outpatient (RCR) | payer OTHER, SELFPAY | END 2023-02-08 23:59 | LOC: NS 07:52 | PROVIDERS: PCP Family Medicine; Referring Provider Family Medicine; Visit Provider Family Medicine | DX: Z71.3 Dietary counseling and surveillance (principal); E66.01 Morbid (severe) obesity due to excess calories; Z68.42 Body mass index [BMI] 45.0-49.9, adult | CPT/HCPCS: 97803 ==

== ENCOUNTER → 2023-01-11 | Outpatient (CLI) | payer OTHER, SELFPAY ==
[2023-01-11 12:12] LABS: Absolute Lymphocyte Count 2.24 X10^3/uL (0.83-4.51); Absolute Neutrophil Count 4.1 X10^3/uL (2.0-7.7); Basophil# 0.03 X10^3/uL; Basophil% 0.4 % (0-1); Eosinophil# 0.12 X10^3/uL; Eosinophils% 1.7 % (0-5); Hematocrit 39.5 % (37-47); Hemoglobin 13.3 g/dL (12.0-15.0); Lymphocyte # 2.24 X10^3/ul (0.83-4.51); Lymphocyte % 31.9 % (19-41); Mean Corp Hgb Conc 33.7 g/dL (32-36); Mean Corpuscular Hgb 31.2 pg (27.0-32.0); Mean Corpuscular Volume 92.7 fL (81-99); Mean Platelet Vol. 9.3 fl (6.2-12.0); Monocyte# 0.52 X10^3/uL; Monocyte% 7.4 % (0-10); NRBC Flagged by Analyzer 0 % (0-5); Neutrophil % 58.3 % (47-70); Platelet Count 242 K/mm3 (150-450); RBC Distribution Width CV 12.8 % (11.6-14.6); RBC Distribution Width SD 43.7 fl (35.1-43.9); Red Blood Count 4.26 M/mm3 (4.2-5.4)
[2023-01-11 12:52] LABS: ALB/GLOB Ratio 0.9 RATIO (0.9-2.4); AST(SGOT) 14 U/L (15-37); Alanine Aminotransfer ALT/SGPT 18 U/L (13-56); Albumin, Serum 3.4 g/dL (3.2-5.0); Alkaline Phosphatase 82 U/L (45-117); Anion Gap 6 (5-15); BUN 10 mg/dL (7-18); BUN/Creat Ratio 15.2 RATIO (10-20); Calcium,Total 8.9 mg/dL (8.5-10.1); Chloride 105 mmol/L (98-107); Cholesterol 150 mg/dL (200); Creatinine, Serum 0.66 mg/dL (0.55-1.02); EST Glomerular Filtration Rate 112 mL/min (>60); Est Glom Filt Rate - Afr Amer 135 mL/min (>60); Globulin 3.7 g/dL (2.2-4.2); Glucose 94 mg/dL (74-106); High Density Lipoprotein 54 mg/dL; Potassium 3.8 mmol/L (3.5-5.1); Protein, Total 7.1 g/dL (6.4-8.2); Sodium Level 138 mmol/L (136-145); Triglycerides 66 mg/dL; Very Low Density Lipoprotein 13 mg/dL (5-40)
== END | disposition home or self-care (01) ==
LOC: MFPLAB 11:01
PROVIDERS: PCP Family Medicine; Visit Provider Family Medicine
DX: E66.01 Morbid (severe) obesity due to excess calories (principal)
CPT/HCPCS: 36415; 80053; 80061; 85025

== ENCOUNTER 2023-02-23 07:29 | Day surgery (SDC) | payer OTHER, SELFPAY ==
--- NOTE | 2023-02-23 | TESH_PTH ---
PATIENT: DIANE PETERSON [place] [facility] [id number] AGE/SX: 32/F ROOM: RE02/23/[address]: Dr. Dante Hassan DPM : 1990 BED: DIS: 02/23/2023 SPEC #: [id number] RECD: 02/23/23 13:43 STATUS: LAURI CINDY #: [id number] FAMILIA: 02/23/23 00:[address]: Dante Hassan DEPT: SURGICAL PATHOLOGY RECD BY: Margarito Aiken ENTERED: 02/23/23 13:43 SP TYPE: TENDON OTHR DR: Dr. Ubaldo Bills MD Tissues: Tendon and tendon sheath, NOS Procedures: Surgery Specimen Level III HEADER OPERATION: Debride and repair of peroneal tendon tear PRE-OP DIAGNOSIS: Left ankle/foot pain TISSUE SUBMITTED: Peroneus brevis tendon MICROSCOPIC DIAGNOSIS Peroneus brevis tendon, excision: Benign skeletal muscle and tendinous tissue with mild chronic inflammation. AM:cherelle 02/27/2023 COMMENT Case has been reviewed in consultation with Dr. Ascencio who concurs with the above diagnosis. IDC:SJ MICROSCOPIC DESCRIPTION Slides are reviewed. GROSS DESCRIPTION Received in fixative is one container labeled with the patient's name and designated peroneus brevis tendon. The specimen consists of multiple pieces of lafleur-white to red soft tissue that in aggregate measure 4.5 x 2.5 x 1.5 cm. No mass lesion is identified. [place] Steam sections are submitted in one cassette. / KOFFI:cherelle 02/23/2023 More tissue is submitted in cassette 2. / KOFFI:cherelle 02/26/2023 TC:5 CPT: 08612
[2023-02-23 07:58] VITALS: BP 124/74; PULSE 84; RESP 17; TEMP 36.6; O2SAT 98; BMI 44.0
[2023-02-23 07:59] LABS: Internal QC Validated? YES +Cl - CLEAR BKGD; Pregnancy, Urine Negative Negative
[2023-02-23 08:00] LABS: Record Kit Lot#,Urine Preg HCG0000667200
[2023-02-23] MEDS: Lactated Ringers 1,000 ML 15 ML IV (08:02)
[2023-02-23] MEDS: Cefazolin 2 GM in 0.9% Normal Saline (100mL Bag) 100 ML IV (09:00)
[2023-02-23] MEDS: Lidocaine 1% /Epi 1:100 (20ml) 20 ML Vial (09:33)
--- NOTE | 2023-02-23 10:17 | OP.PCM_ITS ---
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 MRI showed findings c/w longitudinal splint peroneus brevis tendon tear. She continues to have ankle pain despite rest, icing, elevation, immobilization, bracing, and EPAT/shockwave. We discussed the options further nonsurgical vs surgical - she elected to proceed with debridement and repair of the peroneus brevis tendon. We discussed this procedure in detail. Reviewed the possible benefits vs risks, goals, expectations and estimated healing time. Advised she will need to be nonweightbearing on that foot for at least 1 month, and then protected weightbearing for another month after that at least. Alterative options of pain management, more time, further bracing were reviewed and discussed with her. Discussed risks of repeat DVT given history of right lower extremity DVT. She has been medically optimized. However she elected to proceed with the surgical intervention. The consent forms were reviewed with her, and she freely signed them. No guarantees were given nor implied. No warranties were given. Patient was medically cleared for surgery. Operative procedure: The patient was brought back to the operating room and was placed on the operating room table in the supine position. Patient was carefully secured to the operating room table with a safety belt around the waist. A time out was performed and she was properly identified and the surgical plan was confirmed. She received general anesthesia per the anesthesia team. She received 3 grams of intervenous Cefazolin for antibiotic prophylaxis. A well padded pneumatic tourniquet was applied around the left thigh - but was not inflated for this procedure. The left lower extremity was scrubbed, prepped, and draped in the usual aseptic fashion. Attention was directed to the left foot/ankle. There was noted to be some edema localized to the peroneal tendons of the lateral hindfoot and ankle. A total of 20mL of 1% Lidocaine with epi was given as a local block around the lateral ankle. Peroneal tendon debridement and repair, left: Attention was directed to the lateral ankle and hindfoot at the level of the peroneal tendons. A skin incision was made over the peroneal tendons of the lateral ankle and hindfoot. Careful dissection was completed down to the superior and inferior peroneal tendon retinaculum which were incised. The peroneal tendon sheath was incised. There was noted to be a very low lying muscle belly of the peroneus brevis tendon causing significant impingement, there was also noted to be significant flattening of the peroneus brevis tendon, as well as tendinosis and mucoid degenerative along with the longitudinal splint bear. The low lying muscle belly as well as the tendinosis and mucoid degeneration were excised and sent as specimen to pathology. This was debrided down to healthy viable tendon. The tendon was repaired and tubularized using 2-0 Prolene in a locking running suturing technique. The peroneus longus tendon was noted to be healthy and viable with no tears or degeneration noted. The surgical site was flushed out with copious amounts of normal saline solution. The peroneal tendons were placed back into proper position. The superior peroneal retinaculum was reapproximated using 2-0 Prolene. The inferior peroneal retinaculum was repaired using 3-0 Vicryl. The subcutaneous tissue was reapproximated using 3-0 Vicryl. The skin was reapproximated using 3-0 Monocryl. CFT < 2 seconds to all toes with normal temperature presents and tissues viable. Hemostasis was achieved. All vital structures including all vital neurovascular structures to the area were properly identified and protected/retracted as necessary for this procedure. A dressing was applied which consisted of steristrips, cavalon, Betadine soaked adaptic, 4x4 gauze, Kerlix, hi bandages. No splint was used due to history of DVT. The patient tolerated the above operative procedure well and the anesthesia well with no complications. The patient was transported from the operative room to the recovery room with vital sign stable and in good condition. Post operative orders were placed. Post operative instructions were reviewed with patient and her - both verbal and written. Keep foot elevated for at least 50 minutes of every hour, keep dressings clean, dry, and intact. No weightbearing left foot. Hiko 5mg/325mg 1-2 tabs PO q 6 hours PRN pain. Eliquis 2.5 PO BID once a day was prescribed for DVT prophylaxis. Patient to follow up in 1 week, or sooner if needed. Grafts/Implants Used: 2-0 Prolene Complications None
[2023-02-23 10:22] VITALS: BP 124/74; BP 147/87; PULSE 120; RESP 18; TEMP 36.2; O2SAT 100
[2023-02-23 10:37] VITALS: BP 124/74; BP 156/102; PULSE 90; RESP 18; O2SAT 100
--- NOTE | 2023-02-23 10:44 | DCINST_ITS ---
Discharge Instructions Diet Discharge Diet: Light diet - advance as tolerated Activity Weight Bearing Status: No weight bearing (No weightbearing left foot) Keep extremity elevated above heart level: Left Leg (Keep left foot elevated, be sure to do hip and knee range of motion for 5-10 minutes every waking hour to help prevent blood clot) Dressing / Incision Call your doctor if your incision/area has: Continuous Slow Oozing, Sudden Increased Bleeding and Foul Smelling Discharge Call your doctor if you observe: Fever of 101 or Higher, Shortness of breath, Chest pain, Increased palpitations (irregular heartbeat), Calf discomfort and Uncontrolled pain Change Dressing in: do not change dressing Remove Dressing in: do not remove dressing Cleanse incision/area with: Keep Dressing Clean & Dry Follow Up Care Please Follow Up With: Dante Hassan DPM When: 1 week, sooner if needed. Test Results: Test results from this visit will be discussed in further detail at your follow- up appointment, if applicable. Discharge Plan Admission Attending Provider: Dante Hassan Primary Care Provider: Ubaldo Bills Discharge Orders/Prescriptions Prescriptions: New hydrocodone-acetaminophen 5-325 mg tablet 1 - 2 tab PO Q6H PRN (Reason: pain) 4 Days Qty: 24 0RF Eliquis 5 mg tablet 5 mg PO Q12H Qty: 60 0RF Referrals / Follow Up: Ubaldo Bills MD [Primary Care Provider] - Disposition Discharge Orders: Discharge Patient (Routine); Ordered 02/23/23 Ordered By: Dr. Dante Hassan
[2023-02-23 10:45] VITALS: BP 124/74; BP 156/102; PULSE 88; RESP 18; O2SAT 100
[2023-02-23 10:56] VITALS: BP 124/74; BP 138/86; PULSE 78; RESP 18; TEMP 36.8; O2SAT 100
[2023-02-23 11:48] VITALS: BP 107/79; BP 124/74; PULSE 79; RESP 16; TEMP 36.3; O2SAT 99
== END 2023-02-23 12:00 | disposition home or self-care (01) ==
LOC: SDC 07:32 → AC 07:33
PROVIDERS: Anesthesiology; PCP Family Medicine; Referring Provider Podiatrist; Visit Provider Podiatrist
PROC: (CPT 28200; principal; 2023-02-23 09:00)
DX: S86.312A Strain of muscle(s) and tendon(s) of peroneal muscle group at lower leg level, left leg, initial encounter (principal); Z68.42 Body mass index [BMI] 45.0-49.9, adult; E66.01 Morbid (severe) obesity due to excess calories; X58.XXXA Exposure to other specified factors, initial encounter; G89.29 Other chronic pain
CPT/HCPCS: 28200; 01470; 81025; 88304; J7120; J2405

== ENCOUNTER → 2023-03-22 | Outpatient (CLI) | payer OTHER, SELFPAY ==
--- NOTE | 2023-03-22 12:53 | VDLE_ITS ---
Reason For Study: DVT RIGHT LEFT GSV is normal. GSV is normal. CFV is compressible, spontaneous, phasic, CFV is compressible, spontaneous, phasic, competent and demonstrates normal competent, and demonstrates normal augmentation. augmentation. PTV is compressible. FV is compressible, spontaneous, phasic, RT PerV is compressible. competent and demonstrates normal FV, POP V , and T/P Trunk are partially augmentation. compressible with bright intraluminal echoes POP V is compressible, spontaneous, phasic, consistent with chronic DVT. competent and demonstrates normal Procedure augmentation. This is a venous duplex using B-mode, color T/P Trunk is compressible. flow and spectral Doppler. PTV is compressible. Exam performed in department. LT PerV is compressible. The exam was diagnostic. A preliminary report was called and/or faxed to Dr. Nielsen office. VL/Venous Duplex US - Eron Extrem Interpretation Summary Chronic deep vein thrombosis is noted in the right femoral vein, popliteal vein , tibioperoneal trunk vein Deep veins of the left lower extremity are patent and compressible segmentally. There is no evidence of left lower extremity deep vein thrombosis. The bilateral great saphenous vei ns appear patent and compressible segmentally. Ordering Physician: Dante Hassan Performed By: Jeremie Villarreal RVT
== END | disposition home or self-care (01) ==
LOC: CVS 12:49
PROVIDERS: PCP Family Medicine; Referring Provider Podiatrist; Visit Provider Podiatrist
DX: I82.511 Chronic embolism and thrombosis of right femoral vein (principal); I82.531 Chronic embolism and thrombosis of right popliteal vein; I82.541 Chronic embolism and thrombosis of right tibial vein; I82.402 Acute embolism and thrombosis of unspecified deep veins of left lower extremity
CPT/HCPCS: 93970

== ENCOUNTER 2023-04-19 08:00 | Outpatient (RCR) | payer SELFPAY | END 2023-05-10 23:59 | LOC: NS 08:00 | PROVIDERS: PCP Family Medicine; Referring Provider Family Medicine; Visit Provider Family Medicine | DX: Z71.3 Dietary counseling and surveillance (principal); E66.01 Morbid (severe) obesity due to excess calories; Z68.42 Body mass index [BMI] 45.0-49.9, adult | CPT/HCPCS: 97803 ==

== ENCOUNTER 2023-06-01 08:00 | Outpatient (RCR) | payer OTHER, SELFPAY ==
--- NOTE | 2023-05-07 12:16 | HP.PTEVAL_ITS ---
Patient's Visit Information Visit Information Visit Information: DIANE PETERSON is a 32 year old F referred to Physical Therapy by Dr. Dante Hassan DPM with a diagnosis of S/P L peroneal tendon repair 02/23/23. Date of Evaluation: 05/07/23 Physical Therapist: Asher Del Valle, PT, ATC Visit Plan Frequency: 2-3x /Week Duration: 4-6 Weeks Plan: L ankle stretching and strengthening, PROM/mobs, balance and proprio, bike, and HEP Subjective Subjective: Pt reports she has had L lateral ankle for one year. Pt reports she finally had surgery 02/23/23 to repair a torn peroneal brevis tendon. Pt reports she was NWBing for 4 weeks, partial weightbearing for 1 week, and has been FWBing since. Pt reports she is very limited with stair negotiation at this time secondary to weakness and limited ROM. Pt reports she works at [employer] and needs to be able to perform prolonged walking (greater than 10,000 steps per day) and negotiate stairs. Pt reports she is on her feet for the entire work day (pt works 10 hour shifts). Pt denies any tingling or numbness in L LE at this time. Pt reports she was told to perform ankle pumps for her HEP. Pt reports her goal is to be able to tolerate standing for prolonged periods of time without having pain. Pt reports her L ankle pain ranges from 0-5/10. Pt reports occasional sleep difficulty at this time secondary to pain Pain L ankle: Pain Intensity (Out of 10): 0 Pain Intensity Range: 5 Objective Objective: Neuro: B LE sensation is WNL to light touch. Observation: Incision is healed. No signs of infection ROM: R ankle DF= 3, PF= 60 degrees; L ankle DF= 0, PF= 45 degrees MMT: R ankle DF= 32, PF= 43 #F ; L ankle DF= 18, PF= 42 #F Gait: Pt ambulates with early pronation of B feet. Balance/Special Test Scores Lower Extremity Functional Score: 35 Goals Goal 1:: Decrease L ankle pain x 50% to aid with sleep Goal Time Frame: 4-6 Weeks Goal 2:: Increase L ankle DF ROM x 10 degrees to aid with restoring a more normal gait pattern Goal Time Frame: 4-6 Weeks Goal 3:: Increase L ankle DF strength x 10 #F to aid with stair negotiation Goal Time Frame: 4-6 Weeks Goal 4:: I with HEP Goal Time Frame: 4-6 Weeks Rehabilitation Potential Physical Therapy Diagnosis: Pt has L ankle pain, weakness, and limited ROM secondary to L peroneal tendon repair. Rehabilitation Potential: Good Anticipated Interventions Patient/Client Instruction: Educate patient on: Condition and Plan of Care For the Purpose of:: To improve self management Therapeutic Exercise to Include: Strength training, Endurance training, Balance training, Flexibilty training, Gait and locomotor training, Passive ROM and Active ROM For the Purpose of:: To decrease pain, To increase ROM and To improve muscle performance and motor function Cryotherapy (ice pack, ice massage): Yes For the Purpose of:: To decrease pain Text: Thank you for the opportunity to evaluate your patient. For Medicare and Medicare HMO plans, please review the plan of care and approve it. It will need to be FAXED BACK to us at [phone] for Medicare purposes. For Medicare only, by signing this I certify the plan of care. Please let me know if there are questions or concerns regarding this plan of care. Physician Signature:_ Date:
--- NOTE | 2023-06-01 08:29 | HP.PTREVAL ---
Re-Evaluation Intro: Dr. Dante Hassan, DPM, It has been my pleasure to treat DIANE PETERSON over the last 9 visits for S/P L peroneal tendon repair 02/23/23. Please see the progress note below for an update on the physical therapy plan of care! Subjective Subjective: Pt reports she is ready to get back to work. Stil in pain, but tolerable Objective Objective/Function: L ankle pain ranges from 2-4/10 MMT: L ankle DF= 34 #F ROM: DF= 2 degrees Pt is I with HEP Plan Plan Plan: Discharge to [facility] Balance/Gait/Functional tests Balance/Special Test Scores Lower Extremity Functional Score: 50 Goals Goals Goal 1:: Decrease L ankle pain x 50% to aid with sleep Goal Time Frame: 4-6 Weeks Goal Progress: Goal Met Goal 2:: Increase L ankle DF ROM x 10 degrees to aid with restoring a more normal gait pattern Goal Time Frame: 4-6 Weeks Goal Progress: Progressing Goal 3:: Increase L ankle DF strength x 10 #F to aid with stair negotiation Goal Time Frame: 4-6 Weeks Goal Progress: Goal Met Goal 4:: I with HEP Goal Time Frame: 4-6 Weeks Goal Progress: Goal Met Anticipated Interventions Anticipated Interventions Patient/Client Instruction: Educate patient on: Condition and Plan of Care For the Purpose of:: To improve self management Therapeutic Exercise to Include: Strength training, Endurance training, Balance training, Flexibilty training, Gait and locomotor training, Passive ROM and Active ROM For the Purpose of:: To decrease pain, To increase ROM and To improve muscle performance and motor function Cryotherapy (ice pack, ice massage): Yes For the Purpose of:: To decrease pain Re-Evaluation Ending Re-evaluation ending: Please do not hesitate to contact me at [phone] by phone or if you have questions or concerns regarding this new plan of care! Sincerely, Asher Del Valle, PT, ATC
--- NOTE | 2023-09-17 13:48 | HP.PTDCSUM ---
Discharge Summary D/C summary: It has been my pleasure to treat DIANE PETERSON referred by Dr. Dante Hassan, GEOFF, with the diagnosis of S/P L peroneal tendon repair 02/23/23 for a total of 9 visit(s). Discharge Date: Please see the following information for a summary of their discharge status. Subjective Subjective: Pt reports she is ready to get back to work. Stil in pain, but tolerable Pain L ankle: Pain Intensity (Out of 10): 2 Overall Improvement % Improvement: 65 Objective Objective/Function: L ankle pain ranges from 2-4/10 MMT: L ankle DF= 34 #F ROM: DF= 2 degrees Pt is I with HEP Goals Goal 1:: Decrease L ankle pain x 50% to aid with sleep Goal Progress: Goal Met Goal 2:: Increase L ankle DF ROM x 10 degrees to aid with restoring a more normal gait pattern Goal Progress: Progressing Goal 3:: Increase L ankle DF strength x 10 #F to aid with stair negotiation Goal Progress: Goal Met Goal 4:: I with HEP Goal Progress: Goal Met Plan Plan: Discharge to HEP D/C Information d/c sentence: If there are questions or concerns regarding this patient's physical therapy, please feel free to call me at [phone]. Thank you for the referral of this patient. Sincerely, Asher Del Valle, PT, ATC Balance/Gait/Functional tests Balance/Special Test Scores Lower Extremity Functional Score: 50 Improvement % Improvement: 65
== END 2023-06-01 19:00 | disposition home or self-care (01) ==
LOC: PT 08:00
PROVIDERS: PCP Family Medicine; Referring Provider Podiatrist; Visit Provider Podiatrist
DX: Z98.890 Other specified postprocedural states (principal)
CPT/HCPCS: 97110; 97161; 97164

== ENCOUNTER 2023-07-19 07:48 | Outpatient (RCR) | payer OTHER, SELFPAY | END 2023-08-09 23:59 | LOC: NS 07:48 | PROVIDERS: PCP Family Medicine; Referring Provider Nurse Practitioner Family; Visit Provider Family Medicine | DX: Z71.3 Dietary counseling and surveillance (principal); E66.01 Morbid (severe) obesity due to excess calories; Z68.42 Body mass index [BMI] 45.0-49.9, adult | CPT/HCPCS: 97803 ==

== ENCOUNTER 2023-10-29 08:04 | Outpatient (RCR) | payer OTHER, SELFPAY | END 2023-11-09 23:59 | LOC: NS 08:04 | PROVIDERS: PCP Family Medicine; Referring Provider Nurse Practitioner Family; Visit Provider Family Medicine | DX: Z71.3 Dietary counseling and surveillance (principal); E66.01 Morbid (severe) obesity due to excess calories; Z68.42 Body mass index [BMI] 45.0-49.9, adult | CPT/HCPCS: 97803 ==

== ENCOUNTER 2024-01-21 07:51 | Outpatient (RCR) | payer OTHER, SELFPAY | END 2024-02-09 23:59 | LOC: NS 07:51 | PROVIDERS: PCP Family Medicine; Referring Provider Family Medicine; Visit Provider Family Medicine | DX: Z71.3 Dietary counseling and surveillance (principal); E66.01 Morbid (severe) obesity due to excess calories; Z68.42 Body mass index [BMI] 45.0-49.9, adult | CPT/HCPCS: 97803 ==

== ENCOUNTER 2024-02-29 13:30 | Outpatient (RCR) | payer OTHER, SELFPAY ==
--- NOTE | 2024-01-31 12:00 | HP.PTEVAL ---
Patient's Visit Information Visit Information Visit Information: DIANE PETERSON is a 33 year old F referred to Physical Therapy by Dr. Ubaldo Bills MD with a diagnosis of R PATELLOFEMORAL PAIN. Date of Evaluation: 01/31/24 Physical Therapist: Esperanza Hernadez PT, Cert MDT Visit Plan Frequency: 2-3x /Week Duration: 4-6 Weeks Plan: R KNEE US AT 1.3 TO 1.5 W/CM2 X 6-8 VISITS. MOBILITY: Stationary biking for tolerable mobility (minimal resistance) ? Stretching/Foam rolling o Hip flexors o Hamstrings o Quadriceps o Iliotibial band o Adductors o Hip extensors/rotators o Gastroc-soleus complex STRENGTHENING: ? Quadriceps isometrics at 0, 45, 90 degrees of flexion ? Straight leg raise ? Bridge/unilateral bridging ? Sidelying clamshells ? Sidelying hip abduction ? Core/lumbopelvic stabilization (transverse abdominus, multifidus, front/side planks) *ONCE SHE HAS FULL R KNEE ROM 0-0-120 AND IS ABLE TO PERFORM SLR WITHOUT LAG CONSIDER: Sumo walks, Monster Walks, 4-way hip drills and Single Stance Balance/Proprioception ball toss, Partial squat, squat to chair, wall slide, Step ups, Step downs - eccentric loading. Subjective Subjective: Work/Leisure: [employer] - STANDING AND WALKING. 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 Disability: NO Present symptoms: R KNEE PAIN UNDER THE KNEE CAP. R KNEE SWELLING. INTERMITTENT SHOOTING PAIN DOWN OUTSIDE OF RIGHT LEG FROM KNEE TO ANKLE. THE WHOLE LOWER LEG TENSES UP SOMETIMES. SHARP PAINS UNDER KNEE CAP. INTERMITTENT TINGLING DOWN THE SIDE OF LOWER LEG. R KNEE POPS WHEN STEPS AND HYPER EXTENDS. R KNEE CRACKLES WHEN KNEE BENDS WITHOUT WEIGHT ON IT. IT USE TO GIVE OUT BUT IT HASN'T FOR A COUPLE MONTHS. Present since: OFF AND ON ABOUT 3 YEARS AGO. Pain Scale: WORST 8/10, LEAST 0/10 Currently: 0/10 Is it getting better, worse or staying the same: GETTING WORSE Commenced as a result of: WEARING BRACE FOR R FOOT AND GAIT CHANGED Symptoms at onset: R KNEE STARTED HYPER-EXTENDING Worse: EXTENSIVE STANDING AND WALKING, KNEELING, STEPS, WALKING ON UNEVEN GROUND Better: ALEVE, ASPIRIN, IBUPROFEN, EXCEDRINE, ICE, REST, ELEVATION. Disturbed sleep: SOMETIMES Treatment this episode: NO INJECTIONS OR SURGERY. STARTED STRENGTHENING (CAME UP WITH EX'S ON HER OWN AFTER PRODUCTION CONTROL TECHNOLOGIST TOLD HER TO TRY STRENGTHENING) IN JUL 2023 AT HOME (CALF RAISES, TOE RAISES, CALF STRETCHES, MARCHING IN PLACE, STANDING KNEE FLEXION, MINI SQUATS, AND WALKING PROGRAM - 1 MILE 2-3 TIMES A WK). IT DOESN'T HYPER-EXTEND ANYMORE. Bowel or Bladder Dysfunction: NO Accidents: NO Unexplained weight loss: NO Imaging: KNEE X-RAY ABOUT 3 YEARS AGO - NORMAL PMH/Recent major surgery: H/O DVT (deep venous thrombosis) RLE AFTER R FOOT SX 2021 H/O Low iron Easy bruising Back pain - chiropractic patient. Migraine headache Non-smoker Leg cramps History of foot surgery - L feb 2023 Plantar Fasciitis. Objective Objective: THIS PATIENT AMBULATES INDEP'LY INTO PT WITH A MILD LIMP ON HER R LE. SHE WALKS WITH R KNEE STIFFNESS/GUARDING. SHE HAS HAD AGUSTIN FOOT SURGERIES. SHE IS WEARING AGUSTIN LE COMPRESSION STOCKINGS. SHE IS NOT WEARING ANKLE BRACES. SHE STATES R LE HAS STAYED BIGGER SINCE HAVING DVT. ROM: R KNEE FULL EXT IN LONG SITTING. PAINFUL R KNEE EXT IN SITTING AND 10 DEG EXTENSOR LAG. R KNEE 5-0-103 FLEXION L KNEE ROM 0-0-122 FLEXION. STRENGTH: R LE: HIP 4-/5, KNEE EXT 3-/5, FLEX 3-/5, ANKLE 5/5. L LE: HIP 5/5, KNEE 5/5, ANKLE 5/5. GIRTH MEASUREMENS: KNEE JT LINE R: 50.5 CM, L: 48.5 CM. PALPATION: TENDERNESS ALONG R LATERAL COLLATERAL LIG REGION. SPECIAL TESTS: ACL TESTING APPEARS TO BE NEGATIVE BUT PATIENT WAS VERY GUARDED. Special Tests R Knee Berny - Meniscus: Negative R Knee William - ACL: Negative R Knee Anterior Drawer - ACL: Negative R Knee Posterior Drawer - PCL: Negative R Knee Valgus - MCL: Negative R Knee Varus - LCL: Positive R Knee Patellar Apprehension - PFS: Positive R Knee Patellar Grind - PFS: Positive Balance/Special Test Scores Lower Extremity Functional Score: 36 Goals Goal 1:: DECREASE C/O R KNEE PAIN TO 0-3 WITH ALL ADL'S. Goal Time Frame: 4-6 Weeks Goal 2:: RESTORE FULL ROM OF R KNEE TO 0-0-120 TO EASE ADL AND WORK FUNCTION Goal Time Frame: 4-6 Weeks Goal 3:: INCREASE R HIP AND KNEE STRENGTH TO 5/5 TO INCREASE R KNEE STABILITY. Goal Time Frame: 4-6 Weeks Goal 4:: PATIENT WILL BE ABLE TO ASCEND AND DESCEND STEPS RECIP. WITH ONE HR WITHOUT LIMITATIONS Goal Time Frame: 4-6 Weeks Goal 5:: INDEP HEP Goal Time Frame: 4-6 Weeks Rehabilitation Potential Physical Therapy Diagnosis: THIS PATIENT PRESENTS TO PT WITH R KNEE TENDERNESS, SWELLIING, STIFFNESS AND WEAKNESS. Rehabilitation Potential: Good Anticipated Interventions Patient/Client Instruction: Educate patient on: Condition, Plan of Care and Risk Factors For the Purpose of:: To improve self management Therapeutic Exercise to Include: Strength training, Balance training, Flexibilty training, Gait and locomotor training and Neuromotor development For the Purpose of:: To decrease pain, To increase ROM, To improve muscle performance and motor function, To increase tolerance to activity/condition/position, To improve ability of physical actions for home/community/work/leisure, To improve gait and locomotor functions, To increase flexibility/ROM, To improve balance and To improve self management TENS: Yes IF ES: Yes Cryotherapy (ice pack, ice massage): Yes Ultrasound (thermal/non thermal): Yes For the Purpose of:: To decrease pain, To decrease swelling/inflammation and To improve nutrient delivery to tissue Text: Thank you for the opportunity to evaluate your patient. For Medicare and Medicare HMO plans, please review the plan of care and approve it. It will need to be FAXED BACK to us at [phone] for Medicare purposes. For Medicare only, by signing this I certify the plan of care. Please let me know if there are questions or concerns regarding this plan of care. Physician Signature: Date:
--- NOTE | 2024-02-29 16:43 | HP.PTREVAL_ITS ---
Re-Evaluation Intro: Dr. Ubaldo Bills MD, It has been my pleasure to treat DIANE PETERSON over the last 9 visits for R PATELLOFEMORAL PAIN. Please see the progress note below for an update on the physical therapy plan of care! Subjective Subjective: PATIENT REPORTS HER KNEE IS BETTER BUT STILL HURTS. SHE REPORTS IT IS DEFINATELY MORE STABLE BUT HURTS HALF WAY THROUGHT THE DAY. STATES SHE IS ABLE TO STEP UP ON THINGS EASIER BUT FRUSTRATING THAT IT STILL HURTS. STILL HURTS TO GO UP AND DOWN STAIRS. PATIENT STATES ITS NOT HYPER EXTENDING MUCH, ITS NOT POPPING MUCH, BUT IT STILL REALLY HURTS WHEN IT DOES. STARTED TRYING TO RIDE HER TRICYCLE AROUND HER NEIB[place]HOOD AND IT IS GOING PRETTY GOOD. Objective Objective/Function: THIS PATIENT WAS SEEN TODAY FOR ASSESSMENT OF PROGRESS TOWARD THE SET PT GOALS AFTER 9 PT VISITS. ALTHOUGH SHE IS GAINING ROM AND STRENGTH, SHE IS STILL HAVING SIGNIFICANT PAIN AND INTERMITTENT POPPING AND HYPEREXTENING OF HER R KNEE. SHE WOULD LIKE TO SEE HER DOCTOR TO DISCUSS NEXT STEPS BEFORE CONTINUING PHYSICAL THERAPY. UPON EXAM TODAY: ROM: R KNEE FULL EXT IN LONG SITTING. PAINFUL R KNEE EXT IN SITTING BUT NO EXTENSOR LAG TODAY. R KNEE 0-0-120 FLEXION. STRENGTH: R LE: HIP 4-/5, KNEE EXT 4-/5, FLEX 4-/5, ANKLE 5/5. Plan Plan Plan: HOLD PT PENDING PHYSICIAN RE-ASSESSMENT. Balance/Gait/Functional tests Balance/Special Test Scores Lower Extremity Functional Score: 41 Goals Goals Goal 1:: DECREASE C/O R KNEE PAIN TO 0-3 WITH ALL ADL'S. Goal Time Frame: 4-6 Weeks Goal Progress: Not met Goal 2:: RESTORE FULL ROM OF R KNEE TO 0-0-120 TO EASE ADL AND WORK FUNCTION Goal Time Frame: 4-6 Weeks Goal Progress: Goal met but painful Goal 3:: INCREASE R HIP AND KNEE STRENGTH TO 5/5 TO INCREASE R KNEE STABILITY. Goal Time Frame: 4-6 Weeks Goal Progress: Not met Goal 4:: PATIENT WILL BE ABLE TO ASCEND AND DESCEND STEPS RECIP. WITH ONE HR WITHOUT LIMITATIONS Goal Time Frame: 4-6 Weeks Goal Progress: Not met Goal 5:: INDEP HEP Goal Time Frame: 4-6 Weeks Goal Progress: Progressing. Anticipated Interventions Anticipated Interventions Patient/Client Instruction: Educate patient on: Condition, Plan of Care and Risk Factors For the Purpose of:: To improve self management Therapeutic Exercise to Include: Strength training, Balance training, Flexibilty training, Gait and locomotor training and Neuromotor development For the Purpose of:: To decrease pain, To increase ROM, To improve muscle performance and motor function, To increase tolerance to activity /condition/position, To improve ability of physical actions for home/community/work/leisure, To improve gait and locomotor functions, To increase flexibility/ROM, To improve balance and To improve self management TENS: Yes IF ES: Yes Cryotherapy (ice pack, ice massage): Yes Ultrasound (thermal/non thermal): Yes For the Purpose of:: To decrease pain, To decrease swelling/inflammation and To improve nutrient delivery to tissue Re-Evaluation Ending Re-evaluation ending: Please do not hesitate to contact me at [phone] by phone or if you have questions or concerns regarding this new plan of care! Sincerely, Esperanza Hernadez, PT, Cert MDT
--- NOTE | 2024-06-17 10:35 | HP.PT.NRP ---
Patient Information Patient Information: DIANE PETERSON was seen in my office for initial evaluation on 01/31/24. The following Plan of Care was established for this patient: POC Established Initial Frequency: 2-3x /Week Initial Duration: 4-6 Weeks Anticipated Interventions Patient/Client Instruction: Educate patient on: Condition, Plan of Care and Risk Factors For the Purpose of:: To improve self management Therapeutic Exercise to Include: Strength training, Balance training, Flexibilty training, Gait and locomotor training and Neuromotor development For the Purpose of:: To decrease pain, To increase ROM, To improve muscle performance and motor function, To increase tolerance to activity/condition/position, To improve ability of physical actions for home/community/work/leisure, To improve gait and locomotor functions, To increase flexibility/ROM, To improve balance and To improve self management TENS: Yes IF ES: Yes Cryotherapy (ice pack, ice massage): Yes Ultrasound (thermal/non thermal): Yes For the Purpose of:: To decrease pain, To decrease swelling/inflammation and To improve nutrient delivery to tissue Last Seen Last Seen: This patient was last seen in our office 02/29/24. Pertinent comments regarding their Physical therapy will appear below: It has been my pleasure to see this patient for a total of 9 visits. This patient has not returned to Physical Therapy for more visits and is appropriate to return to MD for further follow-up as needed. At this point I will be discontinuing this patient from physical therapy. I would be happy to see this patient again in the future if found appropriate by the physician. Thank you! Esperanza Hernadez, PT, Cert MDT Balance/Gait/Functional tests Balance/Special Test Scores Lower Extremity Functional Score: 41
== END 2024-02-29 19:00 | disposition home or self-care (01) ==
LOC: PT 13:30
PROVIDERS: PCP Family Medicine; Referring Provider Family Medicine; Visit Provider Family Medicine
DX: M22.2X1 Patellofemoral disorders, right knee (principal)
CPT/HCPCS: 97035; 97110; 97162; 97530

== ENCOUNTER → 2024-04-15 | Outpatient (CLI) | payer OTHER, SELFPAY ==
[2024-04-15 12:06] LABS: Erythrocyte Sedimentation Rate 2 mm/hr (0-30)
[2024-04-15 12:09] LABS: Absolute Lymphocyte Count 2.02 X10^3/uL (0.83-4.51); Absolute Neutrophil Count 4.9 X10^3/uL (2.0-7.7); Basophil# 0.05 X10^3/uL; Basophil% 0.7 % (0-1); Eosinophil# 0.17 X10^3/uL; Eosinophils% 2.2 % (0-5); Hematocrit 44.8 % (37-47); Hemoglobin 14.8 g/dL (12.0-15.0); Lymphocyte # 2.02 X10^3/ul (0.83-4.51); Lymphocyte % 26.4 % (19-41); Mean Corpuscular Hgb 30.6 pg (27.0-32.0); Mean Corpuscular Volume 92.8 fL (81-99); Monocyte# 0.52 X10^3/uL; Monocyte% 6.8 % (0-10); NRBC Flagged by Analyzer 0 % (0-5); Neutrophil # 4.86 X10^3/uL (2.7-7.7); Neutrophil % 63.6 % (47-70); Platelet Count 239 K/mm3 (150-450); RBC Distribution Width CV 12.7 % (11.6-14.6); RBC Distribution Width SD 43.7 fl (35.1-43.9); Red Blood Count 4.83 M/mm3 (4.2-5.4); White Blood Count 7.6 K/mm3 (4.4-11.0)
[2024-04-15 12:29] LABS: CRP 8.58 mg/L (0.0-3.0); Rheumatoid Factor < 10.0 IU/mL (<15); Uric Acid 5.6 mg/dL (2.6-6.0)
[2024-04-16 09:09] LABS: ANTINUCLEAR ANTIBODIES DIRECT Negative (Negative)
== END | disposition home or self-care (01) ==
LOC: MTLAB 09:38
PROVIDERS: PCP Family Medicine; Referring Provider Student in an Organized Health Care Education/Training Program; Visit Provider Student in an Organized Health Care Education/Training Program
DX: M06.9 Rheumatoid arthritis, unspecified (principal)
CPT/HCPCS: 36415; 84550; 85025; 85652; 86038; 86140; 86431

== ENCOUNTER → 2024-05-14 | Outpatient (CLI) | payer OTHER, SELFPAY ==
[2024-05-14 15:22] LABS: Absolute Lymphocyte Count 2.33 X10^3/uL (0.83-4.51); Absolute Neutrophil Count 4.1 X10^3/uL (2.0-7.7); Basophil# 0.05 X10^3/uL; Basophil% 0.7 % (0-1); Eosinophil# 0.14 X10^3/uL; Hematocrit 43.6 % (37-47); Hemoglobin 14.3 g/dL (12.0-15.0); Lymphocyte # 2.33 X10^3/ul (0.83-4.51); Lymphocyte % 32.8 % (19-41); Mean Corp Hgb Conc 32.8 g/dL (32-36); Mean Corpuscular Hgb 30.5 pg (27.0-32.0); Mean Platelet Vol. 9.5 fl (6.2-12.0); Monocyte# 0.43 X10^3/uL; Monocyte% 6.1 % (0-10); NRBC Flagged by Analyzer 0 % (0-5); Neutrophil # 4.13 X10^3/uL (2.7-7.7); Neutrophil % 58.1 % (47-70); Platelet Count 247 K/mm3 (150-450); RBC Distribution Width CV 12.8 % (11.6-14.6); RBC Distribution Width SD 43.5 fl (35.1-43.9); Red Blood Count 4.69 M/mm3 (4.2-5.4); White Blood Count 7.1 K/mm3 (4.4-11.0)
[2024-05-14 15:56] LABS: AST(SGOT) 13 U/L (15-37); Alanine Aminotransfer ALT/SGPT 23 U/L (13-56); Albumin, Serum 3.6 g/dL (3.2-5.0); Alkaline Phosphatase 75 U/L (45-117); Anion Gap 7 (5-15); BUN 15 mg/dL (7-18); BUN/Creat Ratio 20.9 RATIO (10-20); Chloride 105 mmol/L (98-107); Creatinine, Serum 0.72 mg/dL (0.55-1.02); EST Glomerular Filtration Rate 100 mL/min (>60); Est Glom Filt Rate - Afr Amer 121 mL/min (>60); Globulin 3.5 g/dL (2.2-4.2); Glucose 102 mg/dL (74-106); Potassium 4.1 mmol/L (3.5-5.1); Protein, Total 7.1 g/dL (6.4-8.2); Rheumatoid Factor < 10.0 IU/mL (<15); Sodium Level 136 mmol/L (136-145)
[2024-05-14 16:14] LABS: Hepatitis B Surface Antibody Reactive; Hepatitis B Surface Antigen Non-Reactive (Nonreactive); Hepatitis C Antibody Non-Reactive (Nonreactive)
[2024-05-16 13:07] LABS: CCP IgG Antibodies 5 units (0-19)
== END | disposition home or self-care (01) ==
LOC: MTLAB 10:57
PROVIDERS: PCP Family Medicine; Referring Provider Internal Medicine Rheumatology; Visit Provider Internal Medicine Rheumatology
DX: M06.4 Inflammatory polyarthropathy (principal); M17.0 Bilateral primary osteoarthritis of knee
CPT/HCPCS: 36415; 80053; 85025; 86200; 86431; 86706; 86803; 87340

== ENCOUNTER → 2024-06-13 | Outpatient (CLI) | payer OTHER, SELFPAY ==
[2024-06-13 15:24] LABS: Internal QC Validated? YES +Cl - CLEAR BKGD; Pregnancy, Urine Negative Negative
== END | disposition home or self-care (01) ==
LOC: MTLAB 11:21
PROVIDERS: PCP Family Medicine; Referring Provider Internal Medicine Rheumatology; Visit Provider Internal Medicine Rheumatology
DX: M06.4 Inflammatory polyarthropathy (principal); M17.0 Bilateral primary osteoarthritis of knee; M21.41 Flat foot [pes planus] (acquired), right foot; R51.9 Headache, unspecified; J30.2 Other seasonal allergic rhinitis; Z79.899 Other long term (current) drug therapy
CPT/HCPCS: 81025

== ENCOUNTER → 2024-07-14 | Outpatient (CLI) | payer OTHER, SELFPAY ==
[2024-07-14 17:43] LABS: Absolute Lymphocyte Count 2.58 X10^3/uL (0.83-4.51); Absolute Neutrophil Count 5.5 X10^3/uL (2.0-7.7); Basophil# 0.04 X10^3/uL; Basophil% 0.4 % (0-1); Eosinophil# 0.21 X10^3/uL; Eosinophils% 2.3 % (0-5); Hematocrit 41.2 % (37-47); Hemoglobin 13.3 g/dL (12.0-15.0); Lymphocyte # 2.58 X10^3/ul (0.83-4.51); Lymphocyte % 28.8 % (19-41); Mean Corp Hgb Conc 32.3 g/dL (32-36); Mean Corpuscular Hgb 30.2 pg (27.0-32.0); Mean Corpuscular Volume 93.6 fL (81-99); Mean Platelet Vol. 9.1 fl (6.2-12.0); Monocyte# 0.55 X10^3/uL; Monocyte% 6.1 % (0-10); NRBC Flagged by Analyzer 0 % (0-5); Neutrophil # 5.54 X10^3/uL (2.7-7.7); Neutrophil % 62.1 % (47-70); Platelet Count 240 K/mm3 (150-450); RBC Distribution Width CV 13.5 % (11.6-14.6); RBC Distribution Width SD 46.5 fl (35.1-43.9)
[2024-07-14 18:35] LABS: ALB/GLOB Ratio 1.2 RATIO (0.9-2.4); AST(SGOT) 12 U/L (15-37); Alanine Aminotransfer ALT/SGPT 23 U/L (13-56); Albumin, Serum 4.1 g/dL (3.2-5.0); Alkaline Phosphatase 71 U/L (45-117); Anion Gap 6 (5-15); BUN 16 mg/dL (7-18); BUN/Creat Ratio 19.5 RATIO (10-20); Calcium,Total 9.2 mg/dL (8.5-10.1); Chloride 102 mmol/L (98-107); Creatinine, Serum 0.82 mg/dL (0.55-1.02); EST Glomerular Filtration Rate 85 mL/min (>60); Est Glom Filt Rate - Afr Amer 103 mL/min (>60); Globulin 3.4 g/dL (2.2-4.2); Glucose 87 mg/dL (74-106); Potassium 3.8 mmol/L (3.5-5.1); Protein, Total 7.5 g/dL (6.4-8.2); Sodium Level 135 mmol/L (136-145)
== END | disposition home or self-care (01) ==
LOC: MTLAB 16:28
PROVIDERS: PCP Family Medicine; Referring Provider Internal Medicine Rheumatology; Visit Provider Internal Medicine Rheumatology
DX: M06.4 Inflammatory polyarthropathy (principal); M17.0 Bilateral primary osteoarthritis of knee; M21.41 Flat foot [pes planus] (acquired), right foot; Z79.899 Other long term (current) drug therapy
CPT/HCPCS: 36415; 80053; 85025

== ENCOUNTER → 2024-07-25 | Outpatient (CLI) | payer OTHER, SELFPAY ==
[2024-07-25 10:34] LABS: Absolute Lymphocyte Count 1.59 X10^3/uL (0.83-4.51); Absolute Neutrophil Count 4.1 X10^3/uL (2.0-7.7); Basophil# 0.04 X10^3/uL; Basophil% 0.6 % (0-1); Eosinophils% 3.1 % (0-5); Hematocrit 38.4 % (37-47); Hemoglobin 12.4 g/dL (12.0-15.0); Lymphocyte # 1.59 X10^3/ul (0.83-4.51); Lymphocyte % 24.5 % (19-41); Mean Corp Hgb Conc 32.3 g/dL (32-36); Mean Corpuscular Hgb 30.6 pg (27.0-32.0); Mean Corpuscular Volume 94.8 fL (81-99); Mean Platelet Vol. 9.3 fl (6.2-12.0); Monocyte# 0.52 X10^3/uL; NRBC Flagged by Analyzer 0 % (0-5); Neutrophil # 4.11 X10^3/uL (2.7-7.7); Neutrophil % 63.5 % (47-70); Platelet Count 231 K/mm3 (150-450); RBC Distribution Width CV 13.8 % (11.6-14.6); RBC Distribution Width SD 47.9 fl (35.1-43.9); Red Blood Count 4.05 M/mm3 (4.2-5.4); White Blood Count 6.5 K/mm3 (4.4-11.0)
[2024-07-25 11:11] LABS: ALB/GLOB Ratio 1.1 RATIO (0.9-2.4); AST(SGOT) 13 U/L (15-37); Alanine Aminotransfer ALT/SGPT 20 U/L (13-56); Albumin, Serum 3.5 g/dL (3.2-5.0); Alkaline Phosphatase 64 U/L (45-117); Anion Gap 5 (5-15); BUN 13 mg/dL (7-18); BUN/Creat Ratio 17.4 RATIO (10-20); Calcium,Total 8.9 mg/dL (8.5-10.1); Chloride 108 mmol/L (98-107); Cholesterol 144 mg/dL (200); Creatinine, Serum 0.75 mg/dL (0.55-1.02); EST Glomerular Filtration Rate 95 mL/min (>60); Est Glom Filt Rate - Afr Amer 115 mL/min (>60); Globulin 3.3 g/dL (2.2-4.2); Glucose 103 mg/dL (74-106); High Density Lipoprotein 56 mg/dL; Potassium 4.1 mmol/L (3.5-5.1); Protein, Total 6.8 g/dL (6.4-8.2); Sodium Level 138 mmol/L (136-145); Triglycerides 84 mg/dL; Very Low Density Lipoprotein 17 mg/dL (5-40)
[2024-07-28 17:39] LABS: Hemoglobin A1c 5.4 % (3.8-5.6)
== END | disposition home or self-care (01) ==
LOC: MTLAB 08:45
PROVIDERS: PCP Family Medicine; Referring Provider Family Medicine; Visit Provider Family Medicine
DX: R73.09 Other abnormal glucose (principal); E66.01 Morbid (severe) obesity due to excess calories
CPT/HCPCS: 36415; 80053; 80061; 83036; 84443; 85025

== ENCOUNTER 2024-09-09 07:54 | Outpatient (RCR) | payer OTHER, SELFPAY | END 2024-10-08 23:59 | LOC: NS 07:54 | PROVIDERS: PCP Family Medicine; Referring Provider Family Medicine; Visit Provider Family Medicine | DX: Z71.3 Dietary counseling and surveillance (principal); E66.01 Morbid (severe) obesity due to excess calories; Z68.42 Body mass index [BMI] 45.0-49.9, adult | CPT/HCPCS: 97803 ==

== ENCOUNTER → 2024-09-10 | Outpatient (CLI) | payer OTHER, SELFPAY ==
[2024-09-10 17:56] LABS: Absolute Lymphocyte Count 2.58 X10^3/uL (0.83-4.51); Absolute Neutrophil Count 6.3 X10^3/uL (2.0-7.7); Basophil# 0.04 X10^3/uL; Basophil% 0.4 % (0-1); Eosinophil# 0.28 X10^3/uL; Eosinophils% 2.8 % (0-5); Hematocrit 40.3 % (37-47); Hemoglobin 13.5 g/dL (12.0-15.0); Lymphocyte # 2.58 X10^3/ul (0.83-4.51); Lymphocyte % 25.7 % (19-41); Mean Corp Hgb Conc 33.5 g/dL (32-36); Mean Corpuscular Hgb 31.7 pg (27.0-32.0); Mean Corpuscular Volume 94.6 fL (81-99); Mean Platelet Vol. 9.4 fl (6.2-12.0); Monocyte# 0.75 X10^3/uL; Monocyte% 7.5 % (0-10); NRBC Flagged by Analyzer 0 % (0-5); Neutrophil # 6.32 X10^3/uL (2.7-7.7); Neutrophil % 63.1 % (47-70); Platelet Count 252 K/mm3 (150-450); RBC Distribution Width CV 13.5 % (11.6-14.6); RBC Distribution Width SD 46.5 fl (35.1-43.9); Red Blood Count 4.26 M/mm3 (4.2-5.4)
[2024-09-10 18:13] LABS: ALB/GLOB Ratio 1.5 RATIO (0.9-2.4); AST(SGOT) 19 U/L (<=31); Alanine Aminotransfer ALT/SGPT 21 U/L (<=34); Albumin, Serum 4.4 g/dL (3.5-5.0); Alkaline Phosphatase 76 U/L (35-104); Anion Gap 12 (5-15); BUN 17 mg/dL (4-19); BUN/Creat Ratio 23.2 RATIO (10-20); Calcium,Total 9.8 mg/dL (7.6-11.0); Carbon Dioxide 24.7 mmol/L (21.0-32.0); Chloride 100 mmol/L (98-108); Creatinine, Serum 0.74 mg/dL (0.70-1.20); EST Glomerular Filtration Rate 110 (>60); Globulin 2.9 g/dL (2.2-4.2); Glucose 86 mg/dL (70-99); Protein, Total 7.4 g/dL (5.9-8.4); Sodium Level 137 mmol/L (133-145); Total Bilirubin 0.45 mg/dL (0.00-1.30)
== END | disposition home or self-care (01) ==
LOC: MTLAB 16:21
PROVIDERS: PCP Family Medicine; Referring Provider Internal Medicine Rheumatology; Visit Provider Internal Medicine Rheumatology
DX: M06.4 Inflammatory polyarthropathy (principal); Z79.899 Other long term (current) drug therapy
CPT/HCPCS: 36415; 80053; 85025

== ENCOUNTER → 2024-11-13 | Outpatient (CLI) | payer OTHER, SELFPAY ==
[2024-11-13 18:07] LABS: ALB/GLOB Ratio 1.6 RATIO (0.9-2.4); AST(SGOT) 21 U/L (<=31); Alanine Aminotransfer ALT/SGPT 21 U/L (<=34); Albumin, Serum 4.2 g/dL (3.5-5.0); Alkaline Phosphatase 69 U/L (35-104); Anion Gap 11 (5-15); BUN 25 mg/dL (4-19); BUN/Creat Ratio 31.4 RATIO (10-20); Calcium,Total 9.2 mg/dL (7.6-11.0); Carbon Dioxide 25.5 mmol/L (21.0-32.0); Chloride 100 mmol/L (98-108); Creatinine, Serum 0.79 mg/dL (0.70-1.20); EST Glomerular Filtration Rate 101 (>60); Globulin 2.7 g/dL (2.2-4.2); Glucose 95 mg/dL (70-99); Potassium 4.5 mmol/L (3.3-5.1); Protein, Total 6.9 g/dL (5.9-8.4); Sodium Level 136 mmol/L (133-145); Total Bilirubin 0.33 mg/dL (0.00-1.30)
[2024-11-13 18:15] LABS: Absolute Lymphocyte Count 2.46 X10^3/uL (0.83-4.51); Absolute Neutrophil Count 5.4 X10^3/uL (2.0-7.7); Basophil# 0.05 X10^3/uL; Basophil% 0.6 % (0-1); Eosinophil# 0.25 X10^3/uL; Eosinophils% 2.8 % (0-5); Hematocrit 38.2 % (37-47); Hemoglobin 12.7 g/dL (12.0-15.0); Lymphocyte # 2.46 X10^3/ul (0.83-4.51); Lymphocyte % 27.7 % (19-41); Mean Corp Hgb Conc 33.2 g/dL (32-36); Mean Corpuscular Hgb 31.9 pg (27.0-32.0); Mean Platelet Vol. 9.2 fl (6.2-12.0); Monocyte# 0.73 X10^3/uL; Monocyte% 8.2 % (0-10); NRBC Flagged by Analyzer 0 % (0-5); Neutrophil # 5.35 X10^3/uL (2.7-7.7); Neutrophil % 60.4 % (47-70); Platelet Count 225 K/mm3 (150-450); RBC Distribution Width CV 12.9 % (11.6-14.6); RBC Distribution Width SD 45.1 fl (35.1-43.9); Red Blood Count 3.98 M/mm3 (4.2-5.4); White Blood Count 8.9 K/mm3 (4.4-11.0)
== END | disposition home or self-care (01) ==
LOC: MTLAB 16:21
PROVIDERS: PCP Family Medicine; Referring Provider Internal Medicine Rheumatology; Visit Provider Internal Medicine Rheumatology
DX: M06.4 Inflammatory polyarthropathy (principal); M17.0 Bilateral primary osteoarthritis of knee; Z79.899 Other long term (current) drug therapy
CPT/HCPCS: 36415; 80053; 85025

== ENCOUNTER 2024-12-23 08:01 | Outpatient (RCR) | payer OTHER, SELFPAY | END 2025-01-08 23:59 | LOC: NS 08:01 | PROVIDERS: PCP Family Medicine; Referring Provider Family Medicine; Visit Provider Family Medicine | DX: Z71.3 Dietary counseling and surveillance (principal); E66.01 Morbid (severe) obesity due to excess calories; Z68.42 Body mass index [BMI] 45.0-49.9, adult | CPT/HCPCS: 97803 ==

== ENCOUNTER → 2025-01-06 | Outpatient (CLI) | payer OTHER, SELFPAY ==
[2025-01-06 18:19] LABS: Hematocrit 38.3 % (37-47); Hemoglobin 12.8 g/dL (12.0-15.0); Immature Granulocytes Count 0.030 X10^3/uL (0.0-0.0); Mean Corp Hgb Conc 33.4 g/dL (32-36); Mean Corpuscular Volume 97.5 fL (81-99); Mean Platelet Vol. 9.5 fl (6.2-12.0); NRBC Flagged by Analyzer 0 % (0-5); Platelet Count 233 K/mm3 (150-450); RBC Distribution Width CV 13.5 % (11.6-14.6); RBC Distribution Width SD 47.9 fl (35.1-43.9); Red Blood Count 3.93 M/mm3 (4.2-5.4); White Blood Count 9.3 K/mm3 (4.4-11.0)
[2025-01-06 18:28] LABS: AST(SGOT) 21 U/L (<=31); Alanine Aminotransfer ALT/SGPT 23 U/L (<=34); Albumin, Serum 4.3 g/dL (3.5-5.0); Alkaline Phosphatase 71 U/L (35-104); Anion Gap 12 (5-15); BUN 16 mg/dL (4-19); BUN/Creat Ratio 21.9 RATIO (10-20); Calcium,Total 9.2 mg/dL (7.6-11.0); Carbon Dioxide 25.2 mmol/L (21.0-32.0); Chloride 100 mmol/L (98-108); Globulin 2.6 g/dL (2.2-4.2); Glucose 90 mg/dL (70-99); Potassium 3.8 mmol/L (3.3-5.1)
== END | disposition home or self-care (01) ==
LOC: MTLAB 16:32
PROVIDERS: PCP Family Medicine; Referring Provider Internal Medicine Rheumatology; Visit Provider Internal Medicine Rheumatology
DX: M06.4 Inflammatory polyarthropathy (principal); Z79.899 Other long term (current) drug therapy
CPT/HCPCS: 36415; 80053; 85025

== ENCOUNTER → 2025-02-20 | Outpatient (CLI) | payer OTHER, SELFPAY ==
[2025-02-20 12:30] LABS: Hematocrit 38.2 % (37-47); Hemoglobin 13.0 g/dL (12.0-15.0); Immature Granulocytes Count 0.010 X10^3/uL (0.0-0.0); Mean Corp Hgb Conc 34.0 g/dL (32-36); Mean Corpuscular Volume 96.5 fL (81-99); Mean Platelet Vol. 9.2 fl (6.2-12.0); NRBC Flagged by Analyzer 0 % (0-5); Platelet Count 229 K/mm3 (150-450); RBC Distribution Width CV 13.1 % (11.6-14.6); RBC Distribution Width SD 46.0 fl (35.1-43.9); Red Blood Count 3.96 M/mm3 (4.2-5.4); White Blood Count 5.7 K/mm3 (4.4-11.0)
[2025-02-20 13:26] LABS: AST(SGOT) 16 U/L (<=31); Alanine Aminotransfer ALT/SGPT 14 U/L (<=34); Albumin, Serum 4.2 g/dL (3.5-5.0); Alkaline Phosphatase 60 U/L (35-104); Anion Gap 10 (5-15); BUN 18 mg/dL (4-19); BUN/Creat Ratio 25.3 RATIO (10-20); Calcium,Total 9.1 mg/dL (7.6-11.0); Carbon Dioxide 25.8 mmol/L (21.0-32.0); Chloride 104 mmol/L (98-108); Globulin 2.7 g/dL (2.2-4.2); Glucose 99 mg/dL (70-99); Potassium 4.1 mmol/L (3.3-5.1); Vitamin B12 382 pg/mL (180-914); Vitamin D,25 Hydroxy 20.2 ng/mL (30-100)
== END | disposition home or self-care (01) ==
LOC: MFPLAB 10:33
PROVIDERS: PCP Family Medicine; Referring Provider Family Medicine; Visit Provider Family Medicine
DX: R53.83 Other fatigue (principal)
CPT/HCPCS: 80053; 82306; 82607; 84439; 84443; 85025

== ENCOUNTER 2025-03-17 07:52 | Outpatient (RCR) | payer OTHER, SELFPAY | END 2025-04-10 23:59 | LOC: NS 07:52 | PROVIDERS: PCP Family Medicine; Referring Provider Family Medicine; Visit Provider Family Medicine | DX: Z71.3 Dietary counseling and surveillance (principal); E66.01 Morbid (severe) obesity due to excess calories; Z68.42 Body mass index [BMI] 45.0-49.9, adult | CPT/HCPCS: 97803 ==

== ENCOUNTER → 2025-04-16 | Outpatient (CLI) | payer OTHER, SELFPAY | END | disposition home or self-care (01) | LOC: MTLAB 09:37 | PROVIDERS: PCP Family Medicine; Referring Provider Internal Medicine Rheumatology; Visit Provider Internal Medicine Rheumatology | DX: Z00.00 Encounter for general adult medical examination without abnormal findings (principal) ==

== ENCOUNTER → 2025-04-16 | Outpatient (CLI) | payer OTHER, SELFPAY ==
[2025-04-16 13:03] LABS: Hematocrit 38.5 % (37-47); Hemoglobin 12.9 g/dL (12.0-15.0); Immature Granulocytes Count 0.030 X10^3/uL (0.0-0.0); Mean Corp Hgb Conc 33.5 g/dL (32-36); Mean Corpuscular Volume 96.3 fL (81-99); Mean Platelet Vol. 10.0 fl (6.2-12.0); NRBC Flagged by Analyzer 0 % (0-5); Platelet Count 220 K/mm3 (150-450); RBC Distribution Width CV 13.1 % (11.6-14.6); RBC Distribution Width SD 45.6 fl (35.1-43.9); Red Blood Count 4.00 M/mm3 (4.2-5.4); White Blood Count 6.0 K/mm3 (4.4-11.0)
[2025-04-16 13:23] LABS: AST(SGOT) 17 U/L (<=31); Alanine Aminotransfer ALT/SGPT 15 U/L (<=34); Albumin, Serum 4.0 g/dL (3.5-5.0); Alkaline Phosphatase 64 U/L (35-104); Anion Gap 9 (5-15); BUN 13 mg/dL (4-19); BUN/Creat Ratio 18.6 RATIO (10-20); Calcium,Total 8.8 mg/dL (7.6-11.0); Carbon Dioxide 24.7 mmol/L (21.0-32.0); Chloride 106 mmol/L (98-108); Globulin 2.5 g/dL (2.2-4.2); Glucose 91 mg/dL (70-99); Potassium 3.9 mmol/L (3.3-5.1)
== END | disposition home or self-care (01) ==
LOC: MTLAB 09:39
PROVIDERS: PCP Family Medicine; Referring Provider Internal Medicine Rheumatology; Visit Provider Internal Medicine Rheumatology
DX: M06.4 Inflammatory polyarthropathy (principal); Z79.899 Other long term (current) drug therapy
CPT/HCPCS: 36415; 80053; 85025